=== PATIENT | female | born 1955 | race Caucasian/White ===

== ENCOUNTER 2016-12-17 11:45 | Inpatient (IN) | payer MEDICAID ==
--- NOTE | 2016-12-17 13:35 | EDM.PDOC ---
ED HISTORY OF PRESENT ILLNESS - General Chief Complaint: Respiratory Problem Stated Complaint: LUNG CANCER SURGERY FEELS LIKE FLUID ON LUNG Time Seen by Provider: 12/17/16 13:15 Source: Reports: Patient, Family History Limitations: Reports: No limitations - History of Present Illness INITIAL COMMENTS - FREE TEXT/NARRATIVE: 61-year-old female who had a right thoracotomy just under one month ago had a pleural effusion drained by thoracentesis within the last 2 weeks and is now feeling like the fluid is building back up again. She feels pressure in the right side of her chest and some shortness of breath especially with activity. No fevers or chills, no significant cough. Severity: mild Location, General: Reports: chest Worsens with: Reports: Other (Activity brings about some dyspnea) - Related Data Allergies/ADRs: Allergies Allergy/AdvReac Type Severity Reaction Status Date / Time gluten Allergy GI Verified 05/20/16 23:52 intolerance latex Allergy Cannot Verified 05/20/16 23:52 Remember docusate calcium AdvReac constipatio Verified 05/20/16 23:52 [From Surfak] n Home Meds: Home Meds ALPRAZolam [Xanax] 0.5 mg PO BID 08/04/14 [History] ARIPiprazole [Abilify] 2.5 mg PO DAILY 08/04/14 [History] Fluticasone Propionate [Flonase] 1 spray ROSSI DAILY 08/04/14 [History] Topiramate [Topamax] 200 mg PO TID 08/04/14 [History] Levothyroxine Sodium 100 mcg PO DAILY 02/24/15 [History] Polyethylene Glycol 3350 [MiraLAX] 17 gram PO BID 02/24/15 [History] Sennosides/Docusate Sodium [Sennalax-S] 3 tab PO DAILY 04/05/16 [History] Famotidine 20 mg PO DAILY 12/17/16 [History] Hydrocodone/Acetaminophen [Hydrocodon-Acetaminophn 10-325] 1 - 2 tab PO Q4H PRN 12/17/16 [History] Linaclotide [Linzess] 145 mcg PO DAILY 12/17/16 [History] Loratadine [Claritin] 10 mg PO DAILY 12/17/16 [History] Magnesium 200 mg PO DAILY 12/17/16 [History] Past Medical History HEENT History: Reports: Hard of hearing, Impaired vision, Other (see below) Other HEENT History: Bilateral hearing aids Gastrointestinal History: Reports: Hiatal hernia 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: Musculoskeletal History: Reports: Other (see below) Other Musculoskeletal History: fx arm and wrist on the right side Neurological History: Reports: None Psychiatric History: Reports: Anxiety, Depression, PTSD Endocrine/Metabolic History: Reports: Hypoparathyroidism Oncologic (Cancer) History: Reports: Lung, Lymphoma - Infectious Disease History Infectious Disease History: Reports: Chicken pox, Measles, Mumps, Rubella - Past Surgical History HEENT Surgical History: Reports: None Respiratory Surgical History: Reports: Lung Resection, Thoracotomy, Other (see below) Other Respiratory Surgeries/Procedures: right side GI Surgical History: Reports: Cholecystectomy Endocrine Surgical History: Reports: None Neurological Surgical History: Reports: Laminectomy, Spinal fusion Social & Family History - Tobacco Use Smoking Status *Q: Former Smoker Years of Tobacco use: 50 Packs/Tins Daily: 0.5 Used Tobacco, but Quit: Yes Month Tobacco Last Used: unknown Second Hand Smoke Exposure: No - Caffeine Use Caffeine Use: Reports: Coffee - Alcohol Use Days Per Week of Alcohol Use: 0 - Recreational Drug Use Recreational Drug Use: No ED ROS GENERAL - Review of Systems Review Of Systems: See Below Constitutional: Denies: fever, chills Respiratory: Reports: shortness of breath, pleuritic chest pain Cardiovascular: Reports: Chest pain (Pressure on the right side) GI/Abdominal: Denies: Nausea, Vomiting Skin: Reports: no symptoms Neurological: Denies: headache Psychiatric: Reports: No symptoms ED EXAM, GENERAL - Physical Exam Exam: See Below Exam Limited By: No limitations General Appearance: alert, no apparent distress Respiratory/Chest: no respiratory distress, decreased breath sounds (She has slight decreased breath sounds in the right base, otherwise normal lung sounds) Cardiovascular: regular rate, rhythm. No: tachycardia GI/Abdominal: non tender Extremities: No: pedal edema Neurological: alert, oriented Psychiatric: normal affect, normal mood Skin Exam: Warm, Dry Course - Vital Signs Last Recorded V/S: Last Vital Signs Temp 99.6 F 12/17/16 15:18 Pulse 74 12/17/16 15:18 Resp 16 12/17/16 15:18 BP 126/71 12/17/16 15:18 Pulse Ox 98 12/17/16 15:18 - Orders/Labs/Meds Orders: Active Orders 24 hr Category Date Time Status Chest 2V [CR] Routine Exams 12/17/16 13:26 Taken Sodium Chloride 0.9% [Normal Saline] 1,000 ml Med 12/17/16 14:00 Active IV ASDIRECTED Medication Orders Acetaminophen/Hydrocodone Bitart ([place] 325-10 Mg) 1 - 2 tab PO Q4H PRN PRN Reason: Pain Last Admin: 12/17/16 15:22 Dose: 2 tab Alprazolam (Xanax) 0.5 mg PO BID [facility] Aripiprazole (Abilify) 2.5 mg PO DAILY [facility] Famotidine (Pepcid) 20 mg PO DAILY [facility] Fluticasone Propionate (Flonase) 0 gm NASBOTH DAILY [facility] Sodium Chloride (Normal Saline) 1,000 mls @ 75 mls/hr IV ASDIRECTED [facility] Levothyroxine Sodium (Synthroid) 100 mcg PO DAILY@0730 [facility] Loratadine (Claritin) 10 mg PO DAILY [facility] Magnesium Oxide (Magnesium Oxide) 200 mg PO DAILY [facility] Non-Formulary Medication (Linaclotide [Linzess]) 145 mcg PO DAILY [facility] Ondansetron HCl (Zofran Odt) 4 mg PO Q6H PRN PRN Reason: Nausea able to take PO Polyethylene Glycol (Miralax) 17 gm PO BID [facility] Senna/Docusate Sodium (Senna Plus) 1 tab PO DAILY [facility] Sodium Chloride (Saline Flush) 10 ml FLUSH ASDIRECTED PRN PRN Reason: Keep Vein Open Topiramate (Topamax) 200 mg PO TID [facility] Labs: Laboratory Tests 12/17/16 12/17/16 Range/Units 14:10 14:10 WBC 8.1 (4.5-11.0) K/uL RBC 3.87 (3.30-5.50) M/uL Hgb 11.3 L (12.0-15.0) g/dL Hct 35.2 L (36.0-48.0) % MCV 91 (80-98) fL MCH 29 (27-31) pg MCHC 32 (32-36) % Plt Count 371 (150-400) K/uL Neut % (Auto) 53 (36-66) % Lymph % (Auto) 27 (24-44) % Osborne % (Auto) 10 H (2-6) % Eos % (Auto) 10 H (2-4) % Baso % (Auto) 1 (0-1) % Sodium 141 (140-148) mmol/L Potassium 4.1 (3.6-5.2) mmol/L Chloride 105 (100-108) mmol/L Carbon Dioxide 25 (21-32) mmol/L Anion Gap 11.4 (5.0-14.0) mmol/L BUN 11 (7-18) mg/dL Creatinine 0.9 (0.6-1.0) mg/dL Est Cr Clr Drug Dosing 55.25 mL/min Estimated GFR (MDRD) > 60 (>60) Glucose 100 (74-106) mg/dL Calcium 9.0 (8.5-10.1) mg/dL Meds: Medications Generic Name Dose Route Start Last Admin Trade Name Freq PRN Reason Stop Dose Admin Acetaminophen/Hydrocodone Bitart 1 - 2 tab 12/17/16 14:16 12/17/16 15:22 [place] 325-10 Mg PO 2 tab Q4H PRN Administration Pain Alprazolam 0.5 mg 12/17/16 21:00 Xanax PO BID [facility] Aripiprazole 2.5 mg 12/18/16 09:00 Abilify PO DAILY [facility] Famotidine 20 mg 12/18/16 09:00 Pepcid PO DAILY [facility] Fluticasone Propionate 0 gm 12/18/16 09:00 Flonase NASBOTH DAILY [facility] Sodium Chloride 1,000 mls @ 75 mls/hr 12/17/16 14:00 Normal Saline IV ASDIRECTED [facility] Levothyroxine Sodium 100 mcg 12/18/16 07:30 Synthroid PO DAILY@0730 [facility] Loratadine 10 mg 12/18/16 09:00 Claritin PO DAILY [facility] Magnesium Oxide 200 mg 12/18/16 09:00 Magnesium Oxide PO DAILY [facility] Non-Formulary Medication 145 mcg 12/18/16 09:00 Linaclotide [Linzess] PO DAILY [facility] Ondansetron HCl 4 mg 12/17/16 14:13 Zofran Odt PO Q6H PRN Nausea able to take PO Polyethylene Glycol 17 gm 12/17/16 21:00 Miralax PO BID [facility] Senna/Docusate Sodium 1 tab 12/18/16 09:00 Senna Plus PO DAILY [facility] Sodium Chloride 10 ml 12/17/16 14:13 Saline Flush FLUSH ASDIRECTED PRN Keep Vein Open Topiramate 200 mg 12/17/16 21:00 Topamax PO TID [facility] - Re-Assessments/Exams Free Text/Narrative Re-Assessment/Exam: 12/17/16 13:35 A two-view chest x-ray was obtained. 12/17/16 13:58 X-ray showed not only a pleural effusion but also pneumothorax of roughly 40%. CBC and BMP were then ordered, an IV was established and Dr. Mueller was called to admit the patient who will likely need a chest tube on the right side. Departure - Departure Time of Disposition: 15:03 Disposition: Admitted As Inpatient 64 Condition: fair Clinical Impression: Pneumothorax, postoperative, Pleural effusion on right - My Orders Last 24 Hours: My Active Orders 12/17/16 13:26 Chest 2V [CR] Routine 12/17/16 14:00 Sodium Chloride 0.9% [Normal Saline] 1,000 ml IV ASDIRECTED - Assessment/Plan Last 24 Hours: My Active Orders 12/17/16 13:26 Chest 2V [CR] Routine 12/17/16 14:00 Sodium Chloride 0.9% [Normal Saline] 1,000 ml IV ASDIRECTED
[2016-12-17] MEDS ORDERED: Ondansetron 4 MG Tab.DIS PO PRN (14:13)
[2016-12-17] MEDS ORDERED: Sodium Chloride 0.9% 10 ML Syringe FLUSH PRN (14:13)
[2016-12-17] MEDS: Acetaminophen/HYDROcodone 325-10 MG Tab PO PRN ×2 (15:22→19:53)
[2016-12-17] MEDS: Polyethylene Glycol 3350 Powder 17 GM Packet PO SCH (21:04)
[2016-12-17] MEDS: Topiramate 100 MG Tab PO SCH (21:05)
[2016-12-17] MEDS: ALPRAZolam 0.5 MG Tab PO SCH (21:11)
--- NOTE | 2016-12-17 21:18 | PCM.HP ---
H&P History of Present Illness - General Date of Service: 12/17/16 Admit Problem/Dx: Admission Diagnosis/Problem Admission Diagnosis/Problem Pneumothorax Source of Information: Patient, Family, Old records History Limitations: Reports: No limitations - History of Present Illness Initial Comments - Free Text/Narative: Iwona comes in because of sudden on him unset of shortness of breath. She had been sleeping and when she woke up she was short of breath. She does have a tendency to anxiety and rightfully so she recently was found to have a carcinoma of the lung. She had a lung resection and this week had a pleural effusion and had a thoracentesis. She feels stable at the present time. She came into the emergency room and was found to have a pneumothorax. She does feel pressure type feeling on the right chest. Onset of Symptoms: Reports: sudden Duration of Symptoms: Reports: Hour(s): Location: Reports: chest Quality: Reports: Dull Improves with: Reports: Immobilization Worsens with: Reports: Breathing Associated Symptoms: Reports: chest pain, shortness of breath Right Thoracic Pain Score (Numeric/FACES): 8 right upper chest and all of right side and back Pain Score (Numeric/FACES): 5 - Related Data Allergies/Adverse Reactions: Allergies Allergy/AdvReac Type Severity Reaction Status Date / Time gluten Allergy GI Verified 05/20/16 23:52 intolerance latex Allergy Cannot Verified 05/20/16 23:52 Remember docusate calcium AdvReac constipatio Verified 05/20/16 23:52 [From Surfak] n Home Medications: Home Meds ALPRAZolam [Xanax] 0.5 mg PO BID 08/04/14 [History] ARIPiprazole [Abilify] 2.5 mg PO DAILY 08/04/14 [History] Fluticasone Propionate [Flonase] 1 spray ROSSI DAILY 08/04/14 [History] Topiramate [Topamax] 200 mg PO TID 08/04/14 [History] Levothyroxine Sodium 100 mcg PO DAILY 02/24/15 [History] Polyethylene Glycol 3350 [MiraLAX] 17 gram PO BID 02/24/15 [History] Sennosides/Docusate Sodium [Sennalax-S] 3 tab PO DAILY 04/05/16 [History] Famotidine 20 mg PO DAILY 12/17/16 [History] Hydrocodone/Acetaminophen [Hydrocodon-Acetaminophn 10-325] 1 - 2 tab PO Q4H PRN 12/17/16 [History] Linaclotide [Linzess] 145 mcg PO DAILY 12/17/16 [History] Loratadine [Claritin] 10 mg PO DAILY 12/17/16 [History] Magnesium 200 mg PO DAILY 12/17/16 [History] Past Medical History HEENT History: Reports: Hard of hearing, Impaired vision, Other (see below) Other HEENT History: Bilateral hearing aids Other Respiratory History: THORACENTESIS OF RIGHT LUNG DONE THIS WEEK AT [facility]. 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: Musculoskeletal History: Reports: Other (see below) Other Musculoskeletal History: fx arm and wrist on the right side Neurological History: Reports: None Psychiatric History: Reports: Anxiety, Depression, PTSD Endocrine/Metabolic History: Reports: Hypoparathyroidism Oncologic (Cancer) History: Reports: Lung, Lymphoma - Infectious Disease History Infectious Disease History: Reports: Chicken pox, Measles, Mumps, Rubella - Past Surgical History HEENT Surgical History: Reports: None Respiratory Surgical History: Reports: Lung Resection, Thoracotomy, Other (see below) Other Respiratory Surgeries/Procedures: right side GI Surgical History: Reports: Cholecystectomy Endocrine Surgical History: Reports: None Neurological Surgical History: Reports: Laminectomy, Spinal fusion Social & Family History - Tobacco Use Smoking Status *Q: Former Smoker Years of Tobacco use: 50 Packs/Tins Daily: 0.5 Used Tobacco, but Quit: Yes Month Tobacco Last Used: unknown Second Hand Smoke Exposure: No - Caffeine Use Caffeine Use: Reports: Coffee - Alcohol Use Days Per Week of Alcohol Use: 0 - Recreational Drug Use Recreational Drug Use: No H&P Review of Systems - Review of Systems: Review Of Systems: See Below General: Reports: weakness, fatigue HEENT: Reports: no symptoms Pulmonary: Reports: shortness of breath Cardiovascular: Reports: dyspnea on exertion Gastrointestinal: Reports: No symptoms Genitourinary: Reports: no symptoms Musculoskeletal: Reports: no symptoms Skin: Reports: no symptoms Psychiatric: Reports: no symptoms Neurological: Reports: no symptoms Exam - Exam Exam: See Below - Vital Signs Vital Signs: Last Vital Signs Temp 99.6 F 12/17/16 15:18 Pulse 74 12/17/16 15:18 Resp 16 12/17/16 15:18 BP 126/71 12/17/16 15:18 Pulse Ox 98 12/17/16 15:18 Weight: 128 lb 11.999 oz - Exam General: alert HEENT: PERRLA, Hearing intact, Mucosa moist & pink, Nares patent, Normal nasal septum, Posterior pharynx clear, Conjunctiva clear, EOMI, EACs clear, TMs clear Neck: supple, trachea midline, 2 Lungs: Clear to auscultation, Normal respiratory effort Cardiovascular: regular rate, regular rhythm Abdomen: normal bowel sounds, soft Extremities: 3, normal inspection, 10 Peripheral Pulses: 2+: radial (L), radial (R) Skin: warm, dry, intact Neurological: cranial nerves intact, reflexes equal bilateral, strength equal bilateral, normal gait Neuro Extensive - Mental Status: alert, oriented x3, normal cognition, memory intact DTR: 1+: bicep (L), bicep (R) Psychiatric: alert, normal affect, normal mood - Patient Data Result Diagrams: 12/17/16 14:10 12/17/16 14:10 *Q Meaningful Use (ADM) - VTE *Q VTE Criteria *Q: - Stroke *Q Stroke Criteria *Q: - AMI *Q AMI Criteria *Q: Problem List Initiated/Reviewed/Updated: Yes Orders Last 24hrs: Active Orders 24 hr Category Date Time Status Regular Diet [DIET] Diet 12/17/16 Dinner Active Chest 2V [CR] Routine Exams 12/18/16 05:00 Ordered ALPRAZolam [Xanax] Med 12/17/16 21:00 Active 0.5 mg PO BID ARIPiprazole [Abilify] Med 12/18/16 09:00 Active 2.5 mg PO DAILY Acetaminophen/HYDROcodone [[place] 325-10 MG] Med 12/17/16 14:16 Active 1 - 2 tab PO Q4H PRN Docusate Sodium/Sennosides [Senna Plus] Med 12/18/16 09:00 Active 1 tab PO DAILY Famotidine [Pepcid] Med 12/18/16 09:00 Active 20 mg PO DAILY Fluticasone Propionate [Flonase] Med 12/18/16 09:00 Active 0 gm NASBOTH DAILY Levothyroxine [Synthroid] Med 12/18/16 07:30 Active 100 mcg PO DAILY@0730 Linaclotide [Linzess] Med 12/18/16 09:00 Pending 145 mcg PO DAILY Loratadine [Claritin] Med 12/18/16 09:00 Active 10 mg PO DAILY Magnesium Oxide Med 12/18/16 09:00 Active 200 mg PO DAILY Polyethylene Glycol 3350 [MiraLAX] Med 12/17/16 21:00 Active 17 gm PO BID Topiramate [Topamax] Med 12/17/16 21:00 Active 200 mg PO TID SCD [Sequential Compression Device] [OM.PC] Routine Oth 12/17/16 16:16 Ordered Medication Orders Acetaminophen/Hydrocodone Bitart ([place] 325-10 Mg) 1 - 2 tab PO Q4H PRN PRN Reason: Pain Last Admin: 12/17/16 19:53 Dose: 2 tab Admin: 12/17/16 15:22 Dose: 2 tab Alprazolam (Xanax) 0.5 mg PO BID [facility] Last Admin: 12/17/16 21:11 Dose: 0.5 mg Aripiprazole (Abilify) 2.5 mg PO DAILY [facility] Famotidine (Pepcid) 20 mg PO DAILY [facility] Fluticasone Propionate (Flonase) 0 gm NASBOTH DAILY [facility] Sodium Chloride (Normal Saline) 1,000 mls @ 75 mls/hr IV ASDIRECTED [facility] Levothyroxine Sodium (Synthroid) 100 mcg PO DAILY@0730 [facility] Loratadine (Claritin) 10 mg PO DAILY [facility] Magnesium Oxide (Magnesium Oxide) 200 mg PO DAILY [facility] Non-Formulary Medication (Linaclotide [Linzess]) 145 mcg PO DAILY [facility] Ondansetron HCl (Zofran Odt) 4 mg PO Q6H PRN PRN Reason: Nausea able to take PO Polyethylene Glycol (Miralax) 17 gm PO BID [facility] Last Admin: 12/17/16 21:04 Dose: 17 gm Senna/Docusate Sodium (Senna Plus) 1 tab PO DAILY [facility] Sodium Chloride (Saline Flush) 10 ml FLUSH ASDIRECTED PRN PRN Reason: Keep Vein Open Topiramate (Topamax) 200 mg PO TID [facility] Last Admin: 12/17/16 21:05 Dose: 200 mg Assessment/Plan Comment:: Assessment/Plan: #1. Lung cancer with pneumothorax status post pleurocentesis. I will observe her as the pneumothorax may have been caused at the time of the thoracentesis. I will repeat the chest x-ray in the morning. #2. Temporomandibular joint disorder. Condition stable. #3. Dupuytren's disease of palm. Condition stable. #4. Senile cataract of both eyes. #5. Diaphragmatic hernia. Condition stable.
[2016-12-17] MEDS: Sodium Chloride 0.9% 1,000 ML IV SCH (22:04)
[2016-12-18] MEDS: Acetaminophen/HYDROcodone 325-10 MG Tab PO PRN ×3 (01:55→12:11)
[2016-12-18] MEDS: Levothyroxine 100 MCG Tab PO SCH (07:27)
[2016-12-18] MEDS: Fluticasone Propionate Nasal Spray 16 GM Bottle NASBOTH SCH (08:39)
[2016-12-18] MEDS: ARIPiprazole 10 MG Tab PO SCH (08:40)
[2016-12-18] MEDS: Magnesium Oxide 400 MG Tab PO SCH (08:40)
[2016-12-18] MEDS: Loratadine 10 MG Tab PO SCH (08:40)
[2016-12-18] MEDS: Famotidine 20 MG Tab PO SCH (08:41)
[2016-12-18] MEDS: Polyethylene Glycol 3350 Powder 17 GM Packet PO SCH ×2 (08:41→23:03)
[2016-12-18] MEDS: Topiramate 100 MG Tab PO SCH ×3 (08:41→23:05)
[2016-12-18] MEDS ORDERED: Non-Formulary Medication 1 Each (Linaclotide [Linzess] 145 MCG) PO SCH (09:00)
[2016-12-18] MEDS: ALPRAZolam 0.5 MG Tab PO SCH ×2 (10:12→23:08)
[2016-12-18] MEDS: Sodium Chloride 0.9% 1,000 ML IV SCH ×2 (11:16→16:48)
[2016-12-18] MEDS ORDERED: Bupivacaine 0.5%/EPINEPHrine 1:200,000 50 ML MDV ONE (15:08)
[2016-12-18] MEDS ORDERED: fentaNYL 100 MCG/2 ML SDV ONE (15:15)
[2016-12-18] MEDS ORDERED: Propofol 200 MG/20 ML SDV ONE (15:15)
[2016-12-18] MEDS ORDERED: Midazolam 1 MG/ML 2 ML SDV ONE (15:15)
[2016-12-18] MEDS ORDERED: Naloxone 0.4 MG/ML SDV IV PRN (15:20)
[2016-12-18] MEDS ORDERED: HYDROmorphone/Normal Saline 15 MG/30 ML PCA IV PRN (15:20)
[2016-12-18] MEDS ORDERED: ceFAZolin 2 GM in Sodium Chloride 0.9% 50 ML IV ONE (16:00)
[2016-12-18] MEDS ORDERED: Meperidine PF 25 MG/ML Syringe IVPUSH ONE (16:30)
[2016-12-18] MEDS ORDERED: hydrOXYzine HCl 50 MG/ML SDV IM PRN (16:57)
--- NOTE | 2016-12-18 20:10 | PCM.PN ---
- General Info Date of Service: 12/18/16 Functional Status: Reports: pain controlled - Review of Systems General: Reports: weakness HEENT: Reports: no symptoms Pulmonary: Reports: shortness of breath, pleuritic chest pain Cardiovascular: Reports: no symptoms Gastrointestinal: Reports: No symptoms Genitourinary: Reports: no symptoms Musculoskeletal: Reports: no symptoms Skin: Reports: no symptoms Neurological: Reports: no symptoms Psychiatric: Reports: no symptoms - Patient Data Vitals - most recent: Last Vital Signs Temp 98.1 F 12/18/16 18:00 Pulse 88 12/18/16 19:15 Resp 16 12/18/16 19:15 BP 136/75 12/18/16 19:15 Pulse Ox 96 12/18/16 19:17 Weight - most recent: 130 lb 11.2 oz I&O - last 24 hours: Intake & Output 12/18/16 12/18/16 12/18/16 06:59 14:59 22:59 Intake Total 1964 480 884 Output Total 750 850 Balance 1214 -370 884 Eamon Results last 24 hrs: Microbiology 12/18/16 17:05 Gram Stain - Final Pleural Fluid - Pleural Cavity, Right Med Orders - Current: Current Medications Acetaminophen/Hydrocodone Bitart ([place] 325-10 Mg) 1 - 2 tab PO Q4H PRN PRN Reason: Pain Last Admin: 12/18/16 12:11 Dose: 2 tab Alprazolam (Xanax) 0.5 mg PO BID [facility] Last Admin: 12/18/16 10:12 Dose: 0.5 mg Aripiprazole (Abilify) 2.5 mg PO DAILY [facility] Last Admin: 12/18/16 08:40 Dose: 2.5 mg Famotidine (Pepcid) 20 mg PO DAILY [facility] Last Admin: 12/18/16 08:41 Dose: 20 mg Fluticasone Propionate (Flonase) 0 gm NASBOTH DAILY [facility] Last Admin: 12/18/16 08:39 Dose: Not Given Hydromorphone HCl (Dilaudid [employer]ingo [employer]ier 15 Mg In Ns 30 Ml) 0 mg IV ASDIRECTED PRN; Protocol PRN Reason: RECREATION AIDE PAIN CONTROL Last Admin: 12/18/16 15:29 Dose: 15 mg Hydroxyzine HCl (Vistaril) 100 mg IM Q4H PRN PRN Reason: Pain Last Admin: 12/18/16 18:10 Dose: 100 mg Hydroxyzine HCl (Atarax) 100 mg PO Q4H PRN PRN Reason: Pain Sodium Chloride (Normal Saline) 1,000 mls @ 75 mls/hr IV ASDIRECTED [facility] Last Admin: 12/18/16 16:48 Dose: 75 mls/hr Levothyroxine Sodium (Synthroid) 100 mcg PO DAILY@0730 [facility] Last Admin: 12/18/16 07:27 Dose: 100 mcg Loratadine (Claritin) 10 mg PO DAILY [facility] Last Admin: 12/18/16 08:40 Dose: 10 mg Magnesium Oxide (Magnesium Oxide) 200 mg PO DAILY [facility] Last Admin: 12/18/16 08:40 Dose: 200 mg Naloxone HCl (Narcan) 0.1 mg IV ASDIRECTED PRN PRN Reason: decreased respiratory rate Ondansetron HCl (Zofran Odt) 4 mg PO Q6H PRN PRN Reason: Nausea able to take PO Polyethylene Glycol (Miralax) 17 gm PO BID [facility] Last Admin: 12/18/16 08:41 Dose: 17 gm Senna/Docusate Sodium (Senna Plus) 1 tab PO DAILY [facility] Last Admin: 12/18/16 08:41 Dose: 1 tab Sodium Chloride (Saline Flush) 10 ml FLUSH ASDIRECTED PRN PRN Reason: Keep Vein Open Topiramate (Topamax) 200 mg PO TID [facility] Last Admin: 12/18/16 18:10 Dose: Not Given Discontinued Medications Bupivacaine HCl/Epinephrine Bitart (Marc[place] 0.5%/Epinephrine 1:200,000) Confirm Administered Dose 50 ml .ROUTE .STK-MED ONE Stop: 12/18/16 15:09 Last Admin: 12/18/16 17:09 Dose: 5 ml Fentanyl (Sublimaze) Confirm Administered Dose 100 mcg .ROUTE .STK-MED ONE Stop: 12/18/16 15:16 Cefazolin Sodium 2 gm/ Sodium (Chloride) 50 mls @ 100 mls/hr IV ONCALL ONE Stop: 12/18/16 16:29 Last Admin: 12/18/16 15:28 Dose: 100 mls/hr Meperidine HCl (Demerol) 25 mg IVPUSH ONETIME ONE Stop: 12/18/16 16:31 Last Admin: 12/18/16 16:35 Dose: 25 mg Midazolam HCl (Versed 1 Mg/Ml) Confirm Administered Dose 2 mg .ROUTE .STK-MED ONE Stop: 12/18/16 15:16 Propofol (Diprivan 20 Ml) Confirm Administered Dose 200 mg .ROUTE .STK-MED ONE Stop: 12/18/16 15:16 - Exam General: alert, oriented HEENT: Pupils equal, Pupils reactive, EOMI, Mucous membr. moist/pink Neck: supple Lungs: Decreased breath sounds Cardiovascular: regular rate, regular rhythm Abdomen: bowel sounds present, soft, no tenderness, no distension Back Exam: normal inspection, full range of motion Extremities: no edema Peripheral Pulses: 2+: radial (L), radial (R) Skin: warm Neurological: no new focal deficit Psy/Mental Status: alert - Problem List Review Problem List Initiated/Reviewed/Updated: Yes - My Orders Last 24 Hours: My Active Orders 12/17/16 21:00 ALPRAZolam [Xanax] 0.5 mg PO BID Polyethylene Glycol 3350 [MiraLAX] 17 gm PO BID Topiramate [Topamax] 200 mg PO TID 12/18/16 05:00 Chest 2V [CR] Routine 12/18/16 07:30 Levothyroxine [Synthroid] 100 mcg PO DAILY@0730 12/18/16 09:00 ARIPiprazole [Abilify] 2.5 mg PO DAILY Docusate Sodium/Sennosides [Senna Plus] 1 tab PO DAILY Famotidine [Pepcid] 20 mg PO DAILY Fluticasone Propionate [Flonase] 0 gm NASBOTH DAILY Loratadine [Claritin] 10 mg PO DAILY Magnesium Oxide 200 mg PO DAILY 12/18/16 Lunch NPO Now [Nothing per Oral Now Diet] [DIET] - Plan Plan:: Assessment/Plan: #1. Lung cancer with pneumothorax status post pleurocentesis. The chest x-ray done this morning showed increased pneumothorax of significance. I have called Dr. Shepherd and talked with him and he will put in a chest tube today. #2. Temporomandibular joint disorder. Condition stable. #3. Dupuytren's disease of palm. Condition stable. #4. Senile cataract of both eyes. #5. Diaphragmatic hernia. Condition stable. Her blood pressure is good control 136 systolic.
[2016-12-19] MEDS: Sodium Chloride 0.9% 1,000 ML IV SCH ×2 (02:16→15:40)
[2016-12-19] MEDS: hydrOXYzine HCl 25 MG Tab PO PRN ×2 (07:29→20:24)
[2016-12-19] MEDS: Levothyroxine 100 MCG Tab PO SCH (07:29)
[2016-12-19] MEDS: ARIPiprazole 10 MG Tab PO SCH (08:27)
[2016-12-19] MEDS: Polyethylene Glycol 3350 Powder 17 GM Packet PO SCH ×2 (08:28→20:25)
[2016-12-19] MEDS: Loratadine 10 MG Tab PO SCH (08:28)
[2016-12-19] MEDS: Famotidine 20 MG Tab PO SCH (08:28)
[2016-12-19] MEDS: Magnesium Oxide 400 MG Tab PO SCH (08:28)
[2016-12-19] MEDS: Topiramate 100 MG Tab PO SCH ×3 (08:29→20:24)
[2016-12-19] MEDS: Acetaminophen/HYDROcodone 325-10 MG Tab PO PRN ×4 (08:39→21:08)
[2016-12-19] MEDS: ALPRAZolam 0.5 MG Tab PO SCH ×2 (08:39→20:24)
[2016-12-19] MEDS: Fluticasone Propionate Nasal Spray 16 GM Bottle NASBOTH SCH (08:41)
--- NOTE | 2016-12-19 09:26 | CR ---
Chest 2V HISTORY: Follow-up chest tube placement. COMPARISON: 12/18/2016 at 1558 hours. FINDINGS: Right-sided chest tube unchanged in position. Very tiny apical pneumothorax. No dense acut e infiltrates.
--- NOTE | 2016-12-19 09:28 | CR ---
Chest 1V Frontal HISTORY: Chest tube placement. COMPARISON: 12/18/2016 at 0441 hours FINDINGS: Interval placement of right-sided chest tube. Tiny right apical pneumothorax. No acute inf iltrates.
--- NOTE | 2016-12-19 09:29 | CR ---
Chest 2V HISTORY: Follow-up pneumothorax. COMPARISON: 12/17/2016. FINDINGS: The right-sided hydropneumothorax has slightly increased in size. No obvious tension pneum othorax. Left lung is clear. Pneumothorax is estimated to be approximately 50%.
--- NOTE | 2016-12-19 09:30 | CR ---
Chest 2V HISTORY: Dyspnea COMPARISON: CT scan of the chest 09/14/2016. FINDINGS: Moderate right-sided hydropneumothorax new from prior CT scan. No tension pneumothorax. Le ft lung is clear.
--- NOTE | 2016-12-19 11:50 | OR ---
DATE OF PROCEDURE: 12/18/2016 PREOPERATIVE DIAGNOSES: Combined large right pleural effusion and pneumothorax. POSTOPERATIVE DIAGNOSES: Combined large right pleural effusion and pneumothorax. OPERATIVE PROCEDURE: Right tube thoracostomy ([id number]). ANESTHESIA: Local plus IV sedation. 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 The patient had presented earlier this week with pleural effusion and underwent a thoracentesis. She presented then last evening to the emergency room with a sense of increasing shortness of breath and chest x-ray confirms a large right pleural effusion along with a fairly large pneumothorax. The patient is not clinically dyspneic. The plan is to proceed with a right tube thoracostomy. Potential risks including bleeding, infection, injury to underlying lung or chest wall were reviewed, and the patient wishes to proceed. DETAILS OF PROCEDURE: The patient and taken to the operating room and placed in a supine position with the right arm raised and the patient tilted somewhat toward the left. The right lateral chest wall was then prepped and draped and adjacent to the previous chest tube site, the skin and underlying soft tissues were anesthetized with 1% lidocaine mixed with Marcaine. Transverse incision was made and a blunt dissection then was undertaken into the pleural space. A 20-Scottish chest tube was then placed and directed posteriorly. The #2 Ethibond stitch. Chest x-ray showed a good chest tube placement and a good evacuation of the pleural fluid as well as pneumothorax, roughly 1200 mL of serous pleural fluid was obtained. The cultures were sent, although this does not appear to be grossly infected. The patient was noted to have a small air leak when coughing, but no ongoing significant air leak per se was noted. The dressing was applied. The patient was taken to the recovery room in a satisfactory condition. Liam Shepherd MD /[id number]
[2016-12-19] MEDS: Cyclobenzaprine 10 MG Tab PO PRN ×2 (16:23→22:31)
--- NOTE | 2016-12-19 21:54 | PCM.PN ---
- General Info Date of Service: 12/19/16 Functional Status: Reports: pain controlled - Review of Systems General: Reports: weakness HEENT: Reports: no symptoms Pulmonary: Reports: shortness of breath, pleuritic chest pain Cardiovascular: Reports: no symptoms Gastrointestinal: Reports: No symptoms Genitourinary: Reports: no symptoms Musculoskeletal: Reports: no symptoms Skin: Reports: no symptoms Neurological: Reports: no symptoms Psychiatric: Reports: no symptoms - Patient Data Vitals - most recent: Last Vital Signs Temp 100.6 F 12/19/16 18:45 Pulse 84 12/19/16 18:45 Resp 17 12/19/16 18:45 BP 119/67 12/19/16 18:45 Pulse Ox 97 12/19/16 18:45 Weight - most recent: 133 lb 3.2 oz I&O - last 24 hours: Intake & Output 12/19/16 12/19/16 12/19/16 06:59 14:59 22:59 Intake Total 1163 Output Total 394 909 8250 Balance 323 -350 -1550 Eamon Results last 24 hrs: Microbiology 12/18/16 17:05 Gram Stain - Final Pleural Fluid - Pleural Cavity, Right Med Orders - Current: Current Medications Acetaminophen/Hydrocodone Bitart ([place] 325-10 Mg) 1 - 2 tab PO Q4H PRN PRN Reason: Pain Last Admin: 12/19/16 21:08 Dose: 2 tab Alprazolam (Xanax) 0.5 mg PO BID [facility] Last Admin: 12/19/16 20:24 Dose: 0.5 mg Aripiprazole (Abilify) 2.5 mg PO DAILY [facility] Last Admin: 12/19/16 08:27 Dose: 2.5 mg Cyclobenzaprine HCl (Flexeril) 10 mg PO Q6H PRN PRN Reason: Pain Last Admin: 12/19/16 16:23 Dose: 10 mg Famotidine (Pepcid) 20 mg PO DAILY [facility] Last Admin: 12/19/16 08:28 Dose: 20 mg Fluticasone Propionate (Flonase) 0 gm NASBOTH DAILY [facility] Last Admin: 12/19/16 08:41 Dose: Not Given Hydroxyzine HCl (Vistaril) 100 mg IM Q4H PRN PRN Reason: Pain Last Admin: 12/18/16 18:10 Dose: 100 mg Hydroxyzine HCl (Atarax) 100 mg PO Q4H PRN PRN Reason: Pain Last Admin: 12/19/16 20:24 Dose: 100 mg Sodium Chloride (Normal Saline) 1,000 mls @ 75 mls/hr IV ASDIRECTED [facility] Last Admin: 12/19/16 15:40 Dose: 75 mls/hr Levothyroxine Sodium (Synthroid) 100 mcg PO DAILY@0730 [facility] Last Admin: 12/19/16 07:29 Dose: 100 mcg Loratadine (Claritin) 10 mg PO DAILY [facility] Last Admin: 12/19/16 08:28 Dose: 10 mg Magnesium Oxide (Magnesium Oxide) 200 mg PO DAILY [facility] Last Admin: 12/19/16 08:28 Dose: 200 mg Ondansetron HCl (Zofran Odt) 4 mg PO Q6H PRN PRN Reason: Nausea able to take PO Last Admin: 12/18/16 22:23 Dose: 4 mg Polyethylene Glycol (Miralax) 17 gm PO BID [facility] Last Admin: 12/19/16 20:25 Dose: 17 gm Senna/Docusate Sodium (Senna Plus) 1 tab PO DAILY [facility] Last Admin: 12/19/16 08:28 Dose: 1 tab Sodium Chloride (Saline Flush) 10 ml FLUSH ASDIRECTED PRN PRN Reason: Keep Vein Open Topiramate (Topamax) 200 mg PO TID [facility] Last Admin: 12/19/16 20:24 Dose: 200 mg Discontinued Medications Bupivacaine HCl/Epinephrine Bitart (Marcaine 0.5%/Epinephrine 1:200,000) Confirm Administered Dose 50 ml .ROUTE .STK-MED ONE Stop: 12/18/16 15:09 Last Admin: 12/18/16 17:09 Dose: 5 ml Fentanyl (Sublimaze) Confirm Administered Dose 100 mcg .ROUTE .STK-MED ONE Stop: 12/18/16 15:16 Hydromorphone HCl (Dilaudid Ch[place] 15 Mg In Ns 30 Ml) 0 mg IV ASDIRECTED PRN; Protocol PRN Reason: HYPERION DEVELOPER PAIN CONTROL Last Admin: 12/18/16 15:29 Dose: 15 mg Cefazolin Sodium 2 gm/ Sodium (Chloride) 50 mls @ 100 mls/hr IV ONCALL ONE Stop: 12/18/16 16:29 Last Admin: 12/18/16 15:28 Dose: 100 mls/hr Meperidine HCl (Demerol) 25 mg IVPUSH ONETIME ONE Stop: 12/18/16 16:31 Last Admin: 12/18/16 16:35 Dose: 25 mg Midazolam HCl (Versed 1 Mg/Ml) Confirm Administered Dose 2 mg .ROUTE .STK-MED ONE Stop: 12/18/16 15:16 Naloxone HCl (Narcan) 0.1 mg IV ASDIRECTED PRN PRN Reason: decreased respiratory rate Propofol (Diprivan 20 Ml) Confirm Administered Dose 200 mg .ROUTE .STK-MED ONE Stop: 12/18/16 15:16 - Exam General: alert, oriented HEENT: Pupils equal, Pupils reactive, EOMI, Mucous membr. moist/pink Neck: supple Lungs: Decreased breath sounds Cardiovascular: regular rate, regular rhythm Abdomen: bowel sounds present, soft, no tenderness, no distension Extremities: no edema Peripheral Pulses: 2+: radial (L), radial (R) Skin: warm, dry Wound/Incisions: no drainage Neurological: no new focal deficit Psy/Mental Status: alert, anxious - Problem List Review Problem List Initiated/Reviewed/Updated: Yes - Plan Plan:: Assessment/Plan: #1. Lung cancer with pneumothorax status post pleurocentesis. A chest tube was placed yesterday by Dr. Shepherd and considerable amount of fluid was removed. She had significant pain this morning and I increased her oral medication that she didn't like the HYPERION DEVELOPER. This afternoon she said her pain was not good control but getting better with increased medication. #2. Temporomandibular joint disorder. Condition stable. #3. Dupuytren's disease of palm. Condition stable. #4. Senile cataract of both eyes. #5. Diaphragmatic hernia. Condition stable. Her blood pressure is good control 130/68.
[2016-12-20] MEDS: Acetaminophen/HYDROcodone 325-10 MG Tab PO PRN ×4 (01:15→13:48)
[2016-12-20] MEDS: hydrOXYzine HCl 25 MG Tab PO PRN ×4 (02:34→17:15)
[2016-12-20] MEDS: Cyclobenzaprine 10 MG Tab PO PRN ×4 (04:23→23:08)
[2016-12-20] MEDS: Sodium Chloride 0.9% 1,000 ML IV SCH (04:24)
--- NOTE | 2016-12-20 07:56 | PN ---
DATE OF SERVICE: 12/19/2016 The patient has been afebrile with stable vital signs. She has been down in terms of urine output yesterday, but it did picking crew supervisor during the night. Chest tube output was 340 mL. I am not seeing an air leak, and there is a very minimal sliver of pneumothorax apically. There is much less fluctuation than when she left the operating room, so I think things are probably healing up. We will need to wait until the output is down at around 100 mL to 150 mL a day before pulling the tube, confirming that there is no air leak. We will continue to work on pulmonary toilet. We will leave the HOME HOUSEKEEPER going for today. Liam Shepherd MD /[id number]
[2016-12-20] MEDS: Levothyroxine 100 MCG Tab PO SCH (08:43)
[2016-12-20] MEDS: Loratadine 10 MG Tab PO SCH (08:44)
[2016-12-20] MEDS: ARIPiprazole 10 MG Tab PO SCH (08:44)
[2016-12-20] MEDS: Magnesium Oxide 400 MG Tab PO SCH (08:45)
[2016-12-20] MEDS: Fluticasone Propionate Nasal Spray 16 GM Bottle NASBOTH SCH (08:45)
[2016-12-20] MEDS: Polyethylene Glycol 3350 Powder 17 GM Packet PO SCH ×2 (08:46→20:39)
[2016-12-20] MEDS: Topiramate 100 MG Tab PO SCH ×4 (08:46→20:43)
[2016-12-20] MEDS: Famotidine 20 MG Tab PO SCH (08:46)
[2016-12-20] MEDS: ALPRAZolam 0.5 MG Tab PO SCH ×2 (08:56→20:34)
--- NOTE | 2016-12-20 10:24 | CR ---
Chest 1V Frontal HISTORY: Chest tube COMPARISON: 12/19/2016. FINDINGS: Tiny right apical pneumothorax. Right chest chest tube in good position. Small right-sided effusion. Left lung is clear.
--- NOTE | 2016-12-20 13:33 | PN ---
DATE OF SERVICE: 12/20/2016 The patient has been afebrile with stable vital signs. The patient appeared to have an air leak yesterday for a period of time. This now has stopped. Once again, chest tube output was around 350 mL for the 24 hours. There was little bit of fluid in the pleural space, but no significant pneumothorax. At this time, the plan will be to leave the chest tube in place for now, maximize activity, and work with pulmonary toilet. Liam Shepherd MD /[id number]
[2016-12-20] MEDS ORDERED: Naloxone 0.4 MG/ML SDV IV PRN (18:02)
[2016-12-20] MEDS: Acetaminophen/HYDROcodone 325-5 MG Tab PO PRN (18:17)
[2016-12-20] MEDS: HYDROmorphone/Normal Saline 15 MG/30 ML PCA IV PRN (18:28)
--- NOTE | 2016-12-20 21:53 | PCM.PN ---
- General Info Date of Service: 12/20/16 - Review of Systems General: Reports: weakness HEENT: Reports: no symptoms Pulmonary: Reports: shortness of breath, pleuritic chest pain Cardiovascular: Reports: no symptoms Gastrointestinal: Reports: No symptoms Genitourinary: Reports: no symptoms Musculoskeletal: Reports: no symptoms Skin: Reports: no symptoms Neurological: Reports: no symptoms Psychiatric: Reports: anxiety - Patient Data Vitals - most recent: Last Vital Signs Temp 98.8 F 12/20/16 19:26 Pulse 81 12/20/16 20:29 Resp 10 L 12/20/16 20:29 BP 113/57 L 12/20/16 20:29 Pulse Ox 95 12/20/16 20:29 Weight - most recent: 133 lb 3.2 oz I&O - last 24 hours: Intake & Output 12/20/16 12/20/16 12/20/16 06:59 14:59 22:59 Intake Total 1616 1540 720 Output Total 1250 2225 800 Balance 361 -315 -69 Eamon Results last 24 hrs: Microbiology 12/18/16 17:05 Gram Stain - Final Pleural Fluid - Pleural Cavity, Right Wound Culture - Preliminary NO GROWTH AFTER 1 DAY Anaerobic Culture - Preliminary NO GROWTH AFTER 1 DAY Med Orders - Current: Current Medications Acetaminophen/Hydrocodone Bitart ([place] 325-5 Mg) 1 tab PO Q4H PRN PRN Reason: Pain Last Admin: 12/20/16 18:17 Dose: 1 tab Alprazolam (Xanax) 0.5 mg PO BID [facility] Last Admin: 12/20/16 20:34 Dose: Not Given Aripiprazole (Abilify) 2.5 mg PO DAILY [facility] Last Admin: 12/20/16 08:44 Dose: 2.5 mg Cyclobenzaprine HCl (Flexeril) 10 mg PO Q6H PRN PRN Reason: Pain Last Admin: 12/20/16 17:11 Dose: 10 mg Famotidine (Pepcid) 20 mg PO DAILY [facility] Last Admin: 12/20/16 08:46 Dose: 20 mg Fluticasone Propionate (Flonase) 0 gm NASBOTH DAILY [facility] Last Admin: 12/20/16 08:45 Dose: 1 spray Hydromorphone HCl (Dilaudid Vegetable Thinner 15 Mg In Ns 30 Ml) 0 mg IV ASDIRECTED PRN; Protocol PRN Reason: PAIN Last Admin: 12/20/16 18:28 Dose: 15 mg Hydroxyzine HCl (Vistaril) 100 mg IM Q4H PRN PRN Reason: Pain Last Admin: 12/18/16 18:10 Dose: 100 mg Hydroxyzine HCl (Atarax) 100 mg PO Q4H PRN PRN Reason: Pain Last Admin: 12/20/16 17:15 Dose: 100 mg Levothyroxine Sodium (Synthroid) 100 mcg PO DAILY@0730 [facility] Last Admin: 12/20/16 08:43 Dose: 100 mcg Loratadine (Claritin) 10 mg PO DAILY [facility] Last Admin: 12/20/16 08:44 Dose: 10 mg Magnesium Oxide (Magnesium Oxide) 200 mg PO DAILY [facility] Last Admin: 12/20/16 08:45 Dose: 200 mg Naloxone HCl (Narcan) 0.1 mg IV ASDIRECTED PRN PRN Reason: decreased respiratory rate Ondansetron HCl (Zofran Odt) 4 mg PO Q6H PRN PRN Reason: Nausea able to take PO Last Admin: 12/18/16 22:23 Dose: 4 mg Polyethylene Glycol (Miralax) 17 gm PO BID [facility] Last Admin: 12/20/16 20:39 Dose: 17 gm Senna/Docusate Sodium (Senna Plus) 1 tab PO DAILY [facility] Last Admin: 12/20/16 08:46 Dose: 1 tab Senna/Docusate Sodium (Senna Plus) 2 tab PO BID [facility] Last Admin: 12/20/16 20:38 Dose: 2 tab Sodium Chloride (Saline Flush) 10 ml FLUSH ASDIRECTED PRN PRN Reason: Keep Vein Open Topiramate (Topamax) 200 mg PO TID [facility] Last Admin: 12/20/16 20:43 Dose: Not Given Discontinued Medications Acetaminophen/Hydrocodone Bitart ([place] 325-10 Mg) 1 - 2 tab PO Q4H PRN PRN Reason: Pain Last Admin: 12/20/16 13:48 Dose: 2 tab Bupivacaine HCl/Epinephrine Bitart (Marcaine 0.5%/Epinephrine 1:200,000) Confirm Administered Dose 50 ml [facility] Stop: 12/18/16 15:09 Last Admin: 12/18/16 17:09 Dose: 5 ml Fentanyl (Sublimaze) Confirm Administered Dose 100 mcg .ROUTE .STK-MED ONE Stop: 12/18/16 15:16 Hydromorphone HCl (Dilaudid Vegetable Thinner 15 Mg In Ns 30 Ml) 0 mg IV ASDIRECTED PRN; Protocol PRN Reason: MUSEUM ATTENDANT PAIN CONTROL Last Admin: 12/18/16 15:29 Dose: 15 mg Sodium Chloride (Normal Saline) 1,000 mls @ 75 mls/hr IV ASDIRECTED [facility] Last Admin: 12/20/16 04:24 Dose: 75 mls/hr Cefazolin Sodium 2 gm/ Sodium (Chloride) 50 mls @ 100 mls/hr IV ONCALL ONE Stop: 12/18/16 16:29 Last Admin: 12/18/16 15:28 Dose: 100 mls/hr Meperidine HCl (Demerol) 25 mg IVPUSH ONETIME ONE Stop: 12/18/16 16:31 Last Admin: 12/18/16 16:35 Dose: 25 mg Midazolam HCl (Versed 1 Mg/Ml) Confirm Administered Dose 2 mg .ROUTE .STK-MED ONE Stop: 12/18/16 15:16 Naloxone HCl (Narcan) 0.1 mg IV ASDIRECTED PRN PRN Reason: decreased respiratory rate Propofol (Diprivan 20 Ml) Confirm Administered Dose 200 mg .ROUTE .STK-MED ONE Stop: 12/18/16 15:16 - Exam General: alert, oriented HEENT: Pupils equal, Pupils reactive, EOMI, Mucous membr. moist/pink Neck: supple Lungs: Other (There is decreased breath sounds on the right) Cardiovascular: regular rate, regular rhythm Abdomen: bowel sounds present, soft, no tenderness, no distension Back Exam: normal inspection Extremities: no edema Peripheral Pulses: 2+: radial (L), radial (R) Psy/Mental Status: alert, depressed - Problem List Review Problem List Initiated/Reviewed/Updated: Yes - My Orders Last 24 Hours: My Active Orders 12/20/16 08:50 Convert IV to Saline Lock [OM.PC] Routine 12/20/16 18:00 Acetaminophen/HYDROcodone [[place] 325-5 MG] 1 tab PO Q4H PRN HYDROmorphone/Normal Saline [Dilaudid MUSEUM ATTENDANT 15 MG in NS 30 ML] 0 mg IV ASDIRECTED PRN 12/20/16 18:01 Overnight Pulse Oximetry [RC] Click to Edit Pulse Oximetry Continuous Monitoring [OM.PC] Routine 12/20/16 18:02 Naloxone [Narcan] 0.1 mg IV ASDIRECTED PRN - Plan Plan:: Assessment/Plan: #1. Lung cancer with pneumothorax status post pleurocentesis. A chest tube is in place is still draining 350 cc of fluid. This is being handled by Dr. Joao huerta and she was having significant amount of pain this evening so I restarted the MUSEUM ATTENDANT with Dilaudid and then cut her back to 15/325 hydrocodone instead of 2. #2. Temporomandibular joint disorder. Condition stable. #3. Dupuytren's disease of palm. Condition stable. #4. Senile cataract of both eyes. #5. Diaphragmatic hernia. Condition stable. Her blood pressure is good control 130/68.
[2016-12-21] MEDS: Levothyroxine 100 MCG Tab PO SCH (07:22)
[2016-12-21] MEDS: Loratadine 10 MG Tab PO SCH (08:25)
[2016-12-21] MEDS: ARIPiprazole 10 MG Tab PO SCH (08:25)
[2016-12-21] MEDS: Magnesium Oxide 400 MG Tab PO SCH (08:26)
[2016-12-21] MEDS: Topiramate 100 MG Tab PO SCH ×3 (08:26→20:48)
[2016-12-21] MEDS: Polyethylene Glycol 3350 Powder 17 GM Packet PO SCH ×2 (08:26→20:48)
[2016-12-21] MEDS: Famotidine 20 MG Tab PO SCH (08:26)
[2016-12-21] MEDS: Fluticasone Propionate Nasal Spray 16 GM Bottle NASBOTH SCH (08:26)
[2016-12-21] MEDS: ALPRAZolam 0.5 MG Tab PO SCH ×2 (08:26→20:46)
[2016-12-21] MEDS ORDERED: Magnesium Citrate Solution 296 ML Bottle PO ONE (08:52)
--- NOTE | 2016-12-21 09:51 | CR ---
Chest 1V Frontal HISTORY: Chest tube COMPARISON: 12/20/2016 FINDINGS: Right-sided chest tube. Tiny right apical pneumothorax unchanged. No new infiltrates. Righ t lung base effusion is no longer apparent.
[2016-12-21] MEDS: Acetaminophen/HYDROcodone 325-5 MG Tab PO PRN (12:04)
[2016-12-21] MEDS: Acetaminophen/HYDROcodone 325-5 MG Tab PO SCH ×3 (15:48→23:43)
[2016-12-21] MEDS: HYDROmorphone/Normal Saline 15 MG/30 ML PCA IV PRN (20:29)
--- NOTE | 2016-12-21 23:20 | PCM.PN ---
- General Info Date of Service: 12/21/16 Subjective Update: She's feeling much better after the oral medications and the MACHINE QUILT STUFFER Dilaudid is in force. - Review of Systems General: Reports: weakness Pulmonary: Reports: shortness of breath, pleuritic chest pain Cardiovascular: Reports: no symptoms Gastrointestinal: Reports: Constipation Genitourinary: Reports: no symptoms Musculoskeletal: Reports: no symptoms Skin: Reports: no symptoms Neurological: Reports: no symptoms Psychiatric: Reports: no symptoms - Patient Data Vitals - most recent: Last Vital Signs Temp 97.9 F 12/21/16 22:00 Pulse 99 12/21/16 22:00 Resp 14 12/21/16 22:00 BP 114/57 L 12/21/16 22:00 Pulse Ox 96 12/21/16 22:00 Weight - most recent: 135 lb 14.4 oz I&O - last 24 hours: Intake & Output 12/21/16 12/21/16 12/22/16 14:59 22:59 06:59 Intake Total 480 1290 Output Total 600 1100 Balance -120 190 Lab Results last 24 hrs: Laboratory Results - last 24 hr 12/21/16 12/21/16 Range/Units 08:46 08:50 WBC 6.1 (4.5-11.0) K/uL RBC 3.86 (3.30-5.50) M/uL Hgb 11.1 L (12.0-15.0) g/dL Hct 35.2 L (36.0-48.0) % MCV 91 (80-98) fL MCH 29 (27-31) pg MCHC 32 (32-36) % Plt Count 293 (150-400) K/uL Neut % (Auto) 52 (36-66) % Lymph % (Auto) 23 L (24-44) % Bath % (Auto) 11 H (2-6) % Eos % (Auto) 14 H (2-4) % Baso % (Auto) 1 (0-1) % Sodium 139 L (140-148) mmol/L Potassium 4.5 (3.6-5.2) mmol/L Chloride 105 (100-108) mmol/L Carbon Dioxide 26 (21-32) mmol/L Anion Gap 12.5 (5.0-14.0) mmol/L BUN 6 L (7-18) mg/dL Creatinine 0.8 (0.6-1.0) mg/dL Est Cr Clr Drug Dosing 62.61 mL/min Estimated GFR (MDRD) > 60 (>60) Glucose 115 H (74-106) mg/dL Calcium 8.9 (8.5-10.1) mg/dL Eamon Results last 24 hrs: Microbiology 12/18/16 17:05 Gram Stain - Final Pleural Fluid - Pleural Cavity, Right Wound Culture - Preliminary NO GROWTH AFTER 2 DAYS Anaerobic Culture - Preliminary NO GROWTH AFTER 2 DAYS Med Orders - Current: Current Medications Acetaminophen/Hydrocodone Bitart ([place] 325-5 Mg) 1 tab PO Q4H [facility] Last Admin: 12/21/16 20:47 Dose: 1 tab Alprazolam (Xanax) 0.5 mg PO BID [facility] Last Admin: 12/21/16 20:46 Dose: 0.5 mg Aripiprazole (Abilify) 2.5 mg PO DAILY [facility] Last Admin: 12/21/16 08:25 Dose: 2.5 mg Cyclobenzaprine HCl (Flexeril) 10 mg PO Q6H PRN PRN Reason: Pain Last Admin: 12/20/16 23:08 Dose: 10 mg Famotidine (Pepcid) 20 mg PO DAILY [facility] Last Admin: 12/21/16 08:26 Dose: 20 mg Fluticasone Propionate (Flonase) 0 gm NASBOTH DAILY [facility] Last Admin: 12/21/16 08:26 Dose: 2 spray Hydromorphone HCl (Dilaudid Billet Straightener 15 Mg In Ns 30 Ml) 0 mg IV ASDIRECTED PRN; Protocol PRN Reason: PAIN Last Admin: 12/21/16 20:29 Dose: 15 mg Hydroxyzine HCl (Vistaril) 100 mg IM Q4H PRN PRN Reason: Pain Last Admin: 12/18/16 18:10 Dose: 100 mg Hydroxyzine HCl (Atarax) 100 mg PO Q4H PRN PRN Reason: Pain Last Admin: 12/20/16 17:15 Dose: 100 mg Levothyroxine Sodium (Synthroid) 100 mcg PO DAILY@0730 [facility] Last Admin: 12/21/16 07:22 Dose: 100 mcg Loratadine (Claritin) 10 mg PO DAILY [facility] Last Admin: 12/21/16 08:25 Dose: 10 mg Magnesium Oxide (Magnesium Oxide) 200 mg PO DAILY [facility] Last Admin: 12/21/16 08:26 Dose: 200 mg Naloxone HCl (Narcan) 0.1 mg IV ASDIRECTED PRN PRN Reason: decreased respiratory rate Ondansetron HCl (Zofran Odt) 4 mg PO Q6H PRN PRN Reason: Nausea able to take PO Last Admin: 12/18/16 22:23 Dose: 4 mg Polyethylene Glycol (Miralax) 17 gm PO BID [facility] Last Admin: 12/21/16 20:48 Dose: 17 gm Senna/Docusate Sodium (Senna Plus) 2 tab PO BID [facility] Last Admin: 12/21/16 20:47 Dose: 2 tab Sodium Chloride (Saline Flush) 10 ml FLUSH ASDIRECTED PRN PRN Reason: Keep Vein Open Topiramate (Topamax) 200 mg PO TID [facility] Last Admin: 12/21/16 20:48 Dose: 200 mg Discontinued Medications Acetaminophen/Hydrocodone Bitart ([place] 325-10 Mg) 1 - 2 tab PO Q4H PRN PRN Reason: Pain Last Admin: 12/20/16 13:48 Dose: 2 tab Acetaminophen/Hydrocodone Bitart ([place] 325-5 Mg) 1 tab PO Q4H PRN PRN Reason: Pain Last Admin: 12/21/16 12:04 Dose: 1 tab Bupivacaine HCl/Epinephrine Bitart ([place] 0.5%/Epinephrine 1:200,000) Confirm Administered Dose 50 ml .ROUTE .STK-MED ONE Stop: 12/18/16 15:09 Last Admin: 12/18/16 17:09 Dose: 5 ml Fentanyl (Sublimaze) Confirm Administered Dose 100 mcg .ROUTE .STK-MED ONE Stop: 12/18/16 15:16 Hydromorphone HCl (Dilaudid Billet Straightener 15 Mg In Ns 30 Ml) 0 mg IV ASDIRECTED PRN; Protocol PRN Reason: MACHINE QUILT STUFFER PAIN CONTROL Last Admin: 12/18/16 15:29 Dose: 15 mg Sodium Chloride (Normal Saline) 1,000 mls @ 75 mls/hr IV ASDIRECTED [facility] Last Admin: 12/20/16 04:24 Dose: 75 mls/hr Cefazolin Sodium 2 gm/ Sodium (Chloride) 50 mls @ 100 mls/hr IV ONCALL ONE Stop: 12/18/16 16:29 Last Admin: 02/26/17 15:28 Dose: 100 mls/hr Magnesium Citrate (Citrate Of Magnesia) 296 ml PO ONETIME ONE Stop: 12/21/16 08:53 Last Admin: 12/21/16 12:36 Dose: 296 ml Meperidine HCl (Demerol) 25 mg IVPUSH ONETIME ONE Stop: 12/18/16 16:31 Last Admin: 12/18/16 16:35 Dose: 25 mg Midazolam HCl (Versed 1 Mg/Ml) Confirm Administered Dose 2 mg .ROUTE .STK-MED ONE Stop: 12/18/16 15:16 Naloxone HCl (Narcan) 0.1 mg IV ASDIRECTED PRN PRN Reason: decreased respiratory rate Propofol (Diprivan 20 Ml) Confirm Administered Dose 200 mg .ROUTE .STK-MED ONE Stop: 12/18/16 15:16 Senna/Docusate Sodium (Senna Plus) 1 tab PO DAILY [facility] Last Admin: 12/20/16 08:46 Dose: 1 tab - Exam General: alert, oriented, cooperative, mild distress HEENT: Pupils equal, Pupils reactive, EOMI, Mucous membr. moist/pink Neck: supple Lungs: Decreased breath sounds (and) Cardiovascular: regular rate, regular rhythm Abdomen: bowel sounds present, soft, no tenderness, no distension (Female) Exam: Normal external exam (and), Normal speculum exam, Normal bimanual exam Back Exam: normal inspection, full range of motion Extremities: no edema Peripheral Pulses: 2+: radial (L), radial (R) Skin: warm, dry, intact Neurological: no new focal deficit Psy/Mental Status: alert (is), normal affect, normal mood - Problem List Review Problem List Initiated/Reviewed/Updated: Yes - My Orders Last 24 Hours: My Active Orders 12/21/16 16:00 Acetaminophen/HYDROcodone [[place] 325-5 MG] 1 tab PO Q4H - Plan Plan:: Assessment/Plan: #1. Lung cancer with pneumothorax status post pleurocentesis. A chest tube is in place is still draining 350 cc of fluid. This is being handled by Dr. Joao huerta and she was having significant amount of pain this evening so I restarted the MACHINE QUILT STUFFER with Dilaudid and then cut her back to 15/325 hydrocodone instead of 2. #2. Temporomandibular joint disorder. Condition stable. #3. Dupuytren's disease of palm. Condition stable. #4. Senile cataract of both eyes. #5. Diaphragmatic hernia. Condition stable. Her blood pressure is good control 130/68. if there is lives She did have constipation I did give her citrate of magnesium and she did have a stool this afternoon.
[2016-12-22] MEDS: Cyclobenzaprine 10 MG Tab PO PRN (01:26)
[2016-12-22] MEDS: Acetaminophen/HYDROcodone 325-5 MG Tab PO SCH ×6 (03:52→23:51)
[2016-12-22] MEDS: Levothyroxine 100 MCG Tab PO SCH (07:05)
[2016-12-22] MEDS: Topiramate 100 MG Tab PO SCH ×3 (08:17→20:51)
[2016-12-22] MEDS: ARIPiprazole 10 MG Tab PO SCH (08:18)
[2016-12-22] MEDS: Fluticasone Propionate Nasal Spray 16 GM Bottle NASBOTH SCH (08:18)
[2016-12-22] MEDS: Polyethylene Glycol 3350 Powder 17 GM Packet PO SCH ×2 (08:19→20:51)
[2016-12-22] MEDS: Famotidine 20 MG Tab PO SCH (08:19)
[2016-12-22] MEDS: Magnesium Oxide 400 MG Tab PO SCH (08:20)
[2016-12-22] MEDS: Loratadine 10 MG Tab PO SCH (08:20)
[2016-12-22] MEDS: ALPRAZolam 0.5 MG Tab PO SCH ×2 (08:22→20:51)
--- NOTE | 2016-12-22 08:54 | CR ---
Chest 1V Frontal HISTORY: Chest tube, pneumothorax. COMPARISON: 12/21/2016 FINDINGS: Is a chest tube. A tiny right apical pneumothorax seen previously is not perceptible on to day's film no new infiltrates.
--- NOTE | 2016-12-22 09:34 | PN ---
DATE OF SERVICE: 12/21/2016 The patient has been afebrile with stable vital signs. Chest tube output was around 200 mL, so was a fair bit of fluctuation. Chest x-ray looks good today with there being no fluid or significant pneumothorax. I am not seeing an air leak at this point, and we will try switching over to an atrium dry seal box, which is a smaller container and would be more amenable to her possibly going home with that in place, should the chest tube output continue to be elevated. Liam Shepherd MD /[id number]
--- NOTE | 2016-12-22 18:15 | PCM.PN ---
- General Info Date of Service: 12/22/16 Subjective Update: She says she's doing much better she is able to sleep last night was better and her pain is improved as well. Emotionally she says she is stable. Her pain level is a grade 4-6/10. The pain is sharp worse with certain movement particularly taken of breath. - Review of Systems General: Reports: weakness HEENT: Reports: no symptoms Pulmonary: Reports: shortness of breath, pleuritic chest pain, cough Cardiovascular: Reports: no symptoms Gastrointestinal: Reports: No symptoms, Other (She did pass stool after taking the citrated of magnesium) Genitourinary: Reports: no symptoms Neurological: Reports: no symptoms Psychiatric: Reports: anxiety - Patient Data Vitals - most recent: Last Vital Signs Temp 99.7 F 12/22/16 14:35 Pulse 108 H 12/22/16 14:35 Resp 16 12/22/16 14:35 BP 131/75 12/22/16 14:35 Pulse Ox 93 L 12/22/16 14:35 Weight - most recent: 138 lb 9.6 oz I&O - last 24 hours: Intake & Output 12/22/16 12/22/16 12/22/16 06:59 14:59 22:59 Intake Total 720 840 480 Output Total 120 350 650 Balance 600 490 -170 Eamon Results last 24 hrs: Microbiology 12/18/16 17:05 Gram Stain - Final Pleural Fluid - Pleural Cavity, Right Wound Culture - Final NO GROWTH AFTER 3 DAYS Anaerobic Culture - Final NO GROWTH AFTER 3 DAYS Med Orders - Current: Current Medications Acetaminophen/Hydrocodone Bitart ([place] 325-5 Mg) 1 tab PO Q4H [facility] Last Admin: 12/22/16 17:45 Dose: 1 tab Alprazolam (Xanax) 0.5 mg PO BID [facility] Last Admin: 12/22/16 08:22 Dose: 0.5 mg Aripiprazole (Abilify) 2.5 mg PO DAILY [facility] Last Admin: 12/22/16 08:18 Dose: 2.5 mg Cyclobenzaprine HCl (Flexeril) 10 mg PO Q6H PRN PRN Reason: Pain Last Admin: 12/22/16 01:26 Dose: 10 mg Famotidine (Pepcid) 20 mg PO DAILY [facility] Last Admin: 12/22/16 08:19 Dose: 20 mg Fluticasone Propionate (Flonase) 0 gm NASBOTH DAILY [facility] Last Admin: 12/22/16 08:18 Dose: 1 spray Hydromorphone HCl (Dilaudid Cell Cleaner 15 Mg In Ns 30 Ml) 0 mg IV ASDIRECTED PRN; Protocol PRN Reason: PAIN Last Admin: 12/21/16 20:29 Dose: 15 mg Hydroxyzine HCl (Vistaril) 100 mg IM Q4H PRN PRN Reason: Pain Last Admin: 12/18/16 18:10 Dose: 100 mg Hydroxyzine HCl (Atarax) 100 mg PO Q4H PRN PRN Reason: Pain Last Admin: 12/20/16 17:15 Dose: 100 mg Levothyroxine Sodium (Synthroid) 100 mcg PO DAILY@0730 [facility] Last Admin: 12/22/16 07:05 Dose: 100 mcg Loratadine (Claritin) 10 mg PO DAILY [facility] Last Admin: 12/22/16 08:20 Dose: 10 mg Magnesium Oxide (Magnesium Oxide) 200 mg PO DAILY [facility] Last Admin: 12/22/16 08:20 Dose: 200 mg Naloxone HCl (Narcan) 0.1 mg IV ASDIRECTED PRN PRN Reason: decreased respiratory rate Ondansetron HCl (Zofran Odt) 4 mg PO Q6H PRN PRN Reason: Nausea able to take PO Last Admin: 12/18/16 22:23 Dose: 4 mg Polyethylene Glycol (Miralax) 17 gm PO BID [facility] Last Admin: 12/22/16 08:19 Dose: 17 gm Senna/Docusate Sodium (Senna Plus) 2 tab PO BID [facility] Last Admin: 12/22/16 08:18 Dose: 2 tab Sodium Chloride (Saline Flush) 10 ml FLUSH ASDIRECTED PRN PRN Reason: Keep Vein Open Topiramate (Topamax) 200 mg PO TID [facility] Last Admin: 12/22/16 15:08 Dose: 200 mg Discontinued Medications Acetaminophen/Hydrocodone Bitart ([place] 325-10 Mg) 1 - 2 tab PO Q4H PRN PRN Reason: Pain Last Admin: 12/20/16 13:48 Dose: 2 tab Acetaminophen/Hydrocodone Bitart ([place] 325-5 Mg) 1 tab PO Q4H PRN PRN Reason: Pain Last Admin: 12/21/16 12:04 Dose: 1 tab Bupivacaine HCl/Epinephrine Bitart (Marcaine 0.5%/Epinephrine 1:200,000) Confirm Administered Dose 50 ml .ROUTE .STK-MED ONE Stop: 12/18/16 15:09 Last Admin: 12/18/16 17:09 Dose: 5 ml Fentanyl (Sublimaze) Confirm Administered Dose 100 mcg .ROUTE .STK-MED ONE Stop: 12/18/16 15:16 Hydromorphone HCl (Dilaudid Cell Cleaner 15 Mg In Ns 30 Ml) 0 mg IV ASDIRECTED PRN; Protocol PRN Reason: DEVELOPMENT WRITER PAIN CONTROL Last Admin: 12/18/16 15:29 Dose: 15 mg Sodium Chloride (Normal Saline) 1,000 mls @ 75 mls/hr IV ASDIRECTED MAURICE Last Admin: 12/20/16 04:24 Dose: 75 mls/hr Cefazolin Sodium 2 gm/ Sodium (Chloride) 50 mls @ 100 mls/hr IV ONCALL ONE Stop: 12/18/16 16:29 Last Admin: 12/18/16 15:28 Dose: 100 mls/hr Magnesium Citrate (Citrate Of Magnesia) 296 ml PO ONETIME ONE Stop: 12/21/16 08:53 Last Admin: 12/21/16 12:36 Dose: 296 ml Meperidine HCl (Demerol) 25 mg IVPUSH ONETIME ONE Stop: 12/18/16 16:31 Last Admin: 12/18/16 16:35 Dose: 25 mg Midazolam HCl (Versed 1 Mg/Ml) Confirm Administered Dose 2 mg .ROUTE .STK-MED ONE Stop: 12/18/16 15:16 Naloxone HCl (Narcan) 0.1 mg IV ASDIRECTED PRN PRN Reason: decreased respiratory rate Propofol (Diprivan 20 Ml) Confirm Administered Dose 200 mg .ROUTE .STK-MED ONE Stop: 12/18/16 15:16 Senna/Docusate Sodium (Senna Plus) 1 tab PO DAILY [facility] Last Admin: 12/20/16 08:46 Dose: 1 tab - Exam General: alert, oriented HEENT: Pupils equal, Pupils reactive, EOMI, Mucous membr. moist/pink Neck: supple Lungs: Decreased breath sounds Cardiovascular: regular rate, regular rhythm Peripheral Pulses: 2+: radial (L), radial (R) Skin: warm, dry, intact Wound/Incisions: healing well Neurological: no new focal deficit Psy/Mental Status: anxious - Problem List Review Problem List Initiated/Reviewed/Updated: Yes - Plan Plan:: Assessment/Plan: #1. Lung cancer with pneumothorax status post pleurocentesis. A chest tube is in place is still draining 150 cc of fluid today. This is being handled by Dr. Shepherd. I did start her on a DEVELOPMENT WRITER with Dilaudid for breakthrough pain she'll continue with the hydrocodone. #2. Temporomandibular joint disorder. Condition stable. #3. Dupuytren's disease of palm. Condition stable. #4. Senile cataract of both eyes. #5. Diaphragmatic hernia. Condition stable. Her blood pressure is good control 130/68. if there is lives She did have constipation I did give her citrate of magnesium and she did have a stool this afternoon.
[2016-12-23] MEDS: Acetaminophen/HYDROcodone 325-5 MG Tab PO SCH ×5 (03:34→20:26)
[2016-12-23] MEDS: HYDROmorphone/Normal Saline 15 MG/30 ML PCA IV PRN (03:35)
[2016-12-23] MEDS: Magnesium Oxide 400 MG Tab PO SCH (08:05)
[2016-12-23] MEDS: Levothyroxine 100 MCG Tab PO SCH (08:05)
[2016-12-23] MEDS: Topiramate 100 MG Tab PO SCH ×3 (08:05→20:30)
[2016-12-23] MEDS: Famotidine 20 MG Tab PO SCH (08:05)
[2016-12-23] MEDS: Loratadine 10 MG Tab PO SCH (08:05)
[2016-12-23] MEDS: ARIPiprazole 10 MG Tab PO SCH (08:06)
[2016-12-23] MEDS: Fluticasone Propionate Nasal Spray 16 GM Bottle NASBOTH SCH (08:06)
[2016-12-23] MEDS: Polyethylene Glycol 3350 Powder 17 GM Packet PO SCH ×2 (08:07→20:29)
[2016-12-23] MEDS: ALPRAZolam 0.5 MG Tab PO SCH ×2 (08:13→20:34)
--- NOTE | 2016-12-23 08:22 | PCM.PN ---
- General Info Date of Service: 12/23/16 - Review of Systems General: Reports: no symptoms HEENT: Reports: no symptoms Pulmonary: Reports: pleuritic chest pain Cardiovascular: Reports: no symptoms Gastrointestinal: Reports: No symptoms Genitourinary: Reports: no symptoms Musculoskeletal: Reports: no symptoms Skin: Reports: no symptoms Neurological: Reports: no symptoms Psychiatric: Reports: no symptoms - Patient Data Vitals - most recent: Last Vital Signs Temp 99.1 F 12/23/16 07:00 Pulse 92 12/23/16 07:00 Resp 18 12/23/16 07:00 BP 125/68 12/23/16 07:00 Pulse Ox 96 12/23/16 07:37 Weight - most recent: 138 lb 9.6 oz I&O - last 24 hours: Intake & Output 12/22/16 12/23/16 12/23/16 22:59 06:59 14:59 Intake Total 720 1620 Output Total 1900 1330 Balance -1180 290 Eamon Results last 24 hrs: Microbiology 12/18/16 17:05 Gram Stain - Final Pleural Fluid - Pleural Cavity, Right Wound Culture - Final NO GROWTH AFTER 3 DAYS Anaerobic Culture - Final NO GROWTH AFTER 3 DAYS Med Orders - Current: Current Medications Acetaminophen/Hydrocodone Bitart ([place] 325-5 Mg) 1 tab PO Q4H [facility] Last Admin: 12/23/16 08:04 Dose: 1 tab Alprazolam (Xanax) 0.5 mg PO BID [facility] Last Admin: 12/23/16 08:13 Dose: 0.5 mg Aripiprazole (Abilify) 2.5 mg PO DAILY [facility] Last Admin: 12/23/16 08:06 Dose: 2.5 mg Cyclobenzaprine HCl (Flexeril) 10 mg PO Q6H PRN PRN Reason: Pain Last Admin: 12/22/16 01:26 Dose: 10 mg Famotidine (Pepcid) 20 mg PO DAILY [facility] Last Admin: 12/23/16 08:05 Dose: 20 mg Fluticasone Propionate (Flonase) 0 gm NASBOTH DAILY [facility] Last Admin: 12/23/16 08:06 Dose: 1 spray Hydromorphone HCl (Dilaudid Gas Distribution Supervisor 15 Mg In Ns 30 Ml) 0 mg IV ASDIRECTED PRN; Protocol PRN Reason: PAIN Last Admin: 12/23/16 03:35 Dose: 15 mg Hydroxyzine HCl (Vistaril) 100 mg IM Q4H PRN PRN Reason: Pain Last Admin: 12/18/16 18:10 Dose: 100 mg Hydroxyzine HCl (Atarax) 100 mg PO Q4H PRN PRN Reason: Pain Last Admin: 12/20/16 17:15 Dose: 100 mg Levothyroxine Sodium (Synthroid) 100 mcg PO DAILY@0730 [facility] Last Admin: 12/23/16 08:05 Dose: 100 mcg Loratadine (Claritin) 10 mg PO DAILY [facility] Last Admin: 12/23/16 08:05 Dose: 10 mg Magnesium Oxide (Magnesium Oxide) 200 mg PO DAILY [facility] Last Admin: 12/23/16 08:05 Dose: 200 mg Naloxone HCl (Narcan) 0.1 mg IV ASDIRECTED PRN PRN Reason: decreased respiratory rate Ondansetron HCl (Zofran Odt) 4 mg PO Q6H PRN PRN Reason: Nausea able to take PO Last Admin: 12/18/16 22:23 Dose: 4 mg Polyethylene Glycol (Miralax) 17 gm PO BID [facility] Last Admin: 12/23/16 08:07 Dose: 17 gm Senna/Docusate Sodium (Senna Plus) 2 tab PO BID [facility] Last Admin: 12/23/16 08:05 Dose: 2 tab Sodium Chloride (Saline Flush) 10 ml FLUSH ASDIRECTED PRN PRN Reason: Keep Vein Open Topiramate (Topamax) 200 mg PO TID [facility] Last Admin: 12/23/16 08:05 Dose: 200 mg Discontinued Medications Acetaminophen/Hydrocodone Bitart ([place] 325-10 Mg) 1 - 2 tab PO Q4H PRN PRN Reason: Pain Last Admin: 12/20/16 13:48 Dose: 2 tab Acetaminophen/Hydrocodone Bitart ([place] 325-5 Mg) 1 tab PO Q4H PRN PRN Reason: Pain Last Admin: 12/21/16 12:04 Dose: 1 tab Bupivacaine HCl/Epinephrine Bitart ([place] 0.5%/Epinephrine 1:200,000) Confirm Administered Dose 50 ml .ROUTE .K-MED ONE Stop: 12/18/16 15:09 Last Admin: 12/18/16 17:09 Dose: 5 ml Fentanyl (Sublimaze) Confirm Administered Dose 100 mcg .ROUTE .STK-MED ONE Stop: 12/18/16 15:16 Hydromorphone HCl (Dilaudid Gas Distribution Supervisor 15 Mg In Ns 30 Ml) 0 mg IV ASDIRECTED PRN; Protocol PRN Reason: DEPORTATION OFFICER PAIN CONTROL Last Admin: 12/18/16 15:29 Dose: 15 mg Sodium Chloride (Normal Saline) 1,000 mls @ 75 mls/hr IV ASDIRECTED MAURICE Last Admin: 12/20/16 04:24 Dose: 75 mls/hr Cefazolin Sodium 2 gm/ Sodium (Chloride) 50 mls @ 100 mls/hr IV ONCALL ONE Stop: 12/18/16 16:29 Last Admin: 12/18/16 15:28 Dose: 100 mls/hr Magnesium Citrate (Citrate Of Magnesia) 296 ml PO ONETIME ONE Stop: 12/21/16 08:53 Last Admin: 12/21/16 12:36 Dose: 296 ml Meperidine HCl (Demerol) 25 mg IVPUSH ONETIME ONE Stop: 12/18/16 16:31 Last Admin: 12/18/16 16:35 Dose: 25 mg Midazolam HCl (Versed 1 Mg/Ml) Confirm Administered Dose 2 mg .ROUTE .STK-MED ONE Stop: 12/18/16 15:16 Naloxone HCl (Narcan) 0.1 mg IV ASDIRECTED PRN PRN Reason: decreased respiratory rate Propofol (Diprivan 20 Ml) Confirm Administered Dose 200 mg .ROUTE .STK-MED ONE Stop: 12/18/16 15:16 Senna/Docusate Sodium (Senna Plus) 1 tab PO DAILY [facility] Last Admin: 12/20/16 08:46 Dose: 1 tab - Exam General: alert, oriented HEENT: Pupils equal, Pupils reactive, EOMI, Mucous membr. moist/pink Neck: supple Lungs: Clear to auscultation, Normal respiratory effort Cardiovascular: regular rate, regular rhythm Abdomen: bowel sounds present, soft, no tenderness, no distension Extremities: no edema Peripheral Pulses: 1+: radial (L), radial (R) Skin: warm, dry, intact Wound/Incisions: healing well - Problem List Review Problem List Initiated/Reviewed/Updated: Yes - Plan Plan:: Assessment/Plan: #1. Lung cancer with pneumothorax status post pleurocentesis. A chest tube is in place is still draining 150 cc of fluid today. This is being handled by Dr. Shepherd. Her pain is being controlled well at the present time. #2. Temporomandibular joint disorder. Condition stable. #3. Dupuytren's disease of palm. Condition stable. #4. Senile cataract of both eyes. #5. Diaphragmatic hernia. Condition stable. Her blood pressure is good control 130/68. if there is lives She did have constipation I did give her citrate of magnesium and she did have a stool this afternoon.
--- NOTE | 2016-12-23 09:16 | CR ---
Chest 1V Frontal HISTORY: Chest tube follow-up study. COMPARISON: 12/22/2016 FINDINGS: Right sided chest tube. No perceptible pneumothorax seen. No dense infiltrates. Tiny right -sided effusion. No acute congestive change.
[2016-12-23] MEDS: Cyclobenzaprine 10 MG Tab PO PRN ×2 (13:58→19:30)
[2016-12-23] MEDS: hydrOXYzine HCl 25 MG Tab PO PRN (19:30)
[2016-12-24] MEDS: Acetaminophen/HYDROcodone 325-5 MG Tab PO SCH ×3 (00:20→08:18)
[2016-12-24] MEDS: HYDROmorphone/Normal Saline 15 MG/30 ML PCA IV PRN (02:01)
[2016-12-24] MEDS: Cyclobenzaprine 10 MG Tab PO PRN (02:02)
[2016-12-24 07:16] VITALS: BP 125/59
[2016-12-24] MEDS: Levothyroxine 100 MCG Tab PO SCH (07:25)
[2016-12-24] MEDS: Fluticasone Propionate Nasal Spray 16 GM Bottle NASBOTH SCH (08:19)
[2016-12-24] MEDS: ARIPiprazole 10 MG Tab PO SCH (08:19)
[2016-12-24] MEDS: Loratadine 10 MG Tab PO SCH (08:19)
[2016-12-24] MEDS: Famotidine 20 MG Tab PO SCH (08:20)
[2016-12-24] MEDS: Magnesium Oxide 400 MG Tab PO SCH (08:20)
[2016-12-24] MEDS: Polyethylene Glycol 3350 Powder 17 GM Packet PO SCH (08:20)
[2016-12-24] MEDS: Topiramate 100 MG Tab PO SCH (08:21)
[2016-12-24] MEDS: ALPRAZolam 0.5 MG Tab PO SCH (08:21)
--- NOTE | 2016-12-24 12:43 | PN ---
DATE OF SERVICE: 12/22/2016 The patient has been afebrile with stable vital signs. around 250 mL of chest tube. No air leak is noted. At this point, chest x-ray continues to look good, and we will leave the chest tube in place for now. Possibly, we will see a decrease in the output over the next day or so. Liam Shepherd MD /[id number]
--- NOTE | 2016-12-24 13:10 | PN ---
DATE OF SERVICE: 12/23/2016 The patient has been afebrile with stable vital signs. Chest tube output is around 130 mL, now if it stay so in that range over the next 24 hours, we will pull the chest tube tomorrow morning. Liam Shepherd MD /[id number]
--- NOTE | 2016-12-26 10:49 | CR ---
Portable chest Comparison: Previous day. Findings: There is a right chest tube unchanged in position. There is volume loss with elevation of the right hemidiaphragm. There is no pneumothorax. There are no infiltrates or effusions. Impression: 1. No interval change.
--- NOTE | 2016-12-26 10:50 | CR ---
Portable chest Comparison: Earlier same day. Findings: There has been interval removal of the right chest tube. There is no pneumothorax. The rig ht lung remains well-inflated. Left lung is unremarkable. There are shallow lung volumes. Impression: 1. Uncomplicated removal of right chest tube.
--- NOTE | 2016-12-26 11:24 | DISCH ---
FINAL DIAGNOSIS: Right pneumothorax and large pleural effusion, status post right lower lobectomy. SECONDARY DIAGNOSES: 1. Chronic constipation. 2. History of anxiety and depression. 3. History of treated hypothyroidism. 4. Gastroesophageal reflux disease. PROCEDURE: This was done on 12/18/2016, is right tube thoracostomy. 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 She was doing fairly well at home, when she developed increasing problems with shortness of breath. She did have a large pleural effusion noted and, as an outpatient, had a thoracentesis done. She then re- presented with recurrence of a large pleural effusion, along with a significant pneumothorax. A right chest tube was placed. The patient did have air leak for around another 72 hours and eventually it stopped, and now the chest tube output has come down to around 150 mL for 24 hours, and the tube was pulled today. She will be discharged home with followup with Dr. Shepherd in [facility] this coming Monday with a chest x-ray. She will continue home medications plus Harper 5/325, 1 to 2 tabs q.4 hours p.r.n. pain, #50 and Flexeril 10 mg p.o. q.8 hours p.r.n. muscle spasm, #30 with 1 refill. She will also be scheduled to follow up with her physicians in [place] on a scheduled basis toward the end of the month.
== END 2016-12-24 09:40 | disposition home or self-care (01) | DRG 200 ==
LOC: JP.ED 11:45 → JP.2SS 14:13
PROVIDERS: ADMIT Internal Medicine; ATTEND Surgery
PROC: 0W9930Z Drainage of Right Pleural Cavity with Drainage Device, Percutaneous Approach (ICD-10-PCS; principal; 2016-12-18)
DX: J95.811 Postprocedural pneumothorax (principal); J90 Pleural effusion, not elsewhere classified; Z87.891 Personal history of nicotine dependence; Z85.118 Personal history of other malignant neoplasm of bronchus and lung; Z85.72 Personal history of non-Hodgkin lymphomas; K59.09 Other constipation; Z98.1 Arthrodesis status; F43.10 Post-traumatic stress disorder, unspecified; F41.9 Anxiety disorder, unspecified; F32.9 Major depressive disorder, single episode, unspecified; H54.7 Unspecified visual loss; Z91.040 Latex allergy status; Z88.8 Allergy status to other drugs, medicaments and biological substances; Z91.018 Allergy to other foods; H25.9 Unspecified age-related cataract; E20.9 Hypoparathyroidism, unspecified
CPT/HCPCS: 36415; 71010; 71010-26; 71020; 71020-26; 80048; 85025; 87070; 87075; 87205; 94762; 99285-25; A9270-GY; J0690; J1170; J2175; J2250; J2704; J3010; J3410; J7040; J7050

== ENCOUNTER 2017-06-14 10:36 | Emergency (ER) | payer MEDICAID ==
[2017-06-14 11:24] VITALS: BP 121/74
[2017-06-14] MEDS ORDERED: Ketorolac 60 MG/2 ML SDV IM ONE (12:42)
--- NOTE | 2017-06-14 12:42 | CT ---
Head wo Cont Total DLP 611 mGycm. INDICATION: persistent headache COMPARISON: None. FINDINGS: No acute intracranial hemorrhage, mass, or edema. Noncontrast head CT otherwise negative. IMPRESSION: Negative Exam.
--- NOTE | 2017-06-14 12:48 | EDM.PDOC ---
ED HPI GENERAL MEDICAL PROBLEM - General Chief Complaint: Headache Stated Complaint: HEADACHE Time Seen by Provider: 06/14/17 11:40 Source of Information: Reports: Patient, Family History Limitations: Reports: No Limitations - History of Present Illness INITIAL COMMENTS - FREE TEXT/NARRATIVE: 61-year-old female with chronic migraines that have been under good control with Topamax for the last several years has had a persistent breakthrough migraine for the past week and a half. She has a history of cancer that is supposedly in remission and it's worrying her. She has nausea but no vomiting, does have photophobia, but no other neurologic symptoms such as weakness, paresthesias, visual complaints or recent trauma. She is also added Tylenol and aspirin. Onset: Unknown/Unsure Duration: Waxing/Waning (Symptoms are waxing and waning but not completely going away, have been present for a week and a half) Severity: Moderate Associated Symptoms: Reports: Other (Photophobia and nausea) Left Headache Pain Score (Numeric/FACES): 10 - Related Data Allergies Allergy/AdvReac Type Severity Reaction Status Date / Time gluten Allergy GI Verified 06/14/17 11:52 intolerance latex Allergy Cannot Verified 06/14/17 11:52 Remember docusate calcium AdvReac constipatio Verified 06/14/17 11:52 [From Agatha] n Home Meds: Home Meds ALPRAZolam [Xanax] 0.5 mg PO BID 08/04/14 [History] ARIPiprazole [Abilify] 5 mg PO DAILY 08/04/14 [History] Fluticasone Propionate [Flonase] 1 spray ROSSI DAILY 08/04/14 [History] Topiramate [Topamax] 200 mg PO BID 08/04/14 [History] Levothyroxine Sodium 100 mcg PO DAILY 02/24/15 [History] Polyethylene Glycol 3350 [MiraLAX] 17 gram PO BID 02/24/15 [History] Sennosides/Docusate Sodium [Sennalax-S] 2 tab PO BID 04/05/16 [History] Famotidine 20 mg PO DAILY 12/17/16 [History] Loratadine [Claritin] 10 mg PO BEDTIME 12/17/16 [History] Magnesium 500 mg PO BEDTIME 12/17/16 [History] Penciclovir [Denavir 1% Crm] 1.5 gm TOP Q2H 12/23/16 [History] Topiramate [Topamax] 100 mg PO DAILY 06/14/17 [History] Past Medical History HEENT History: Reports: Cataract, Hard of Hearing, Impaired Vision Other HEENT History: Bilateral hearing aids Other Respiratory History: THORACENTESIS OF RIGHT LUNG DONE THIS WEEK AT [facility] IN [place]. 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: Musculoskeletal History: Reports: Fracture Other Musculoskeletal History: fx arm,fx ankle Neurological History: Reports: Migraines Psychiatric History: Reports: Anxiety, Depression, PTSD Endocrine/Metabolic History: Reports: Hypoparathyroidism Oncologic (Cancer) History: Reports: Lung, Lymphoma - Infectious Disease History Infectious Disease History: Reports: Chicken Pox, Measles, Mumps - Past Surgical History Respiratory Surgical History: Reports: Lung Resection, Thoracotomy GI Surgical History: Reports: Other (See Below) Other GI Surgeries/Procedures: hiatal hernia repair Endocrine Surgical History: Reports: None Neurological Surgical History: Reports: Laminectomy, Spinal Fusion Musculoskeletal Surgical History: Reports: Other (See Below) Other Musculoskeletal Surgeries/Procedures:: back surgery x2 Social & Family History - Tobacco Use Smoking Status *Q: Former Smoker Years of Tobacco use: 50 Packs/Tins Daily: 0.5 Used Tobacco, but Quit: Yes Month Tobacco Last Used: unknown Second Hand Smoke Exposure: No - Caffeine Use Caffeine Use: Reports: Coffee - Alcohol Use Days Per Week of Alcohol Use: 0 - Recreational Drug Use Recreational Drug Use: No ED ROS GENERAL - Review of Systems Review Of Systems: See Below Constitutional: Denies: Fever, Chills, Malaise HEENT: Reports: Other (Photophobia). Denies: Vision Change Respiratory: Denies: Shortness of Breath, Cough Cardiovascular: Denies: Chest Pain, Palpitations Endocrine: Reports: Fatigue GI/Abdominal: Reports: Nausea. Denies: Abdominal Pain, Vomiting : Reports: No Symptoms, Other Skin: Reports: No Symptoms Neurological: Reports: Headache. Denies: Dizziness, Paresthesia, Difficulty Walking, Weakness, Change in Speech Psychiatric: Reports: Anxiety - Physical Exam Exam: See Below Exam Limited By: No Limitations General Appearance: Alert, No Apparent Distress Eye Exam: Bilateral Eye: Normal Inspection Neck: Supple, Non-Tender Respiratory/Chest: No Respiratory Distress, Lungs Clear Cardiovascular: Regular Rate, Rhythm Neuro Exam (Abbreviated): Alert, Oriented, No Motor/Sensory Deficits Psychiatric: Anxious Skin Exam: Warm, Dry Course - Vital Signs Last Recorded V/S: Last Vital Signs Temp 97.7 F 06/14/17 12:05 Pulse 96 06/14/17 12:05 Resp 14 06/14/17 12:05 BP 121/74 06/14/17 12:05 Pulse Ox 100 06/14/17 12:05 - Orders/Labs/Meds Meds: Medications Discontinued Medications Generic Name Dose Route Start Last Admin Trade Name Bo PRN Reason Stop Dose Admin Ketorolac Tromethamine 60 mg 06/14/17 12:42 06/14/17 12:52 Toradol IM 06/14/17 12:43 60 mg ONETIME ONE Administration - Re-Assessments/Exams Free Text/Narrative Re-Assessment/Exam: 06/14/17 12:49 CT the head was obtained and is normal. Patient was then given 60 mg of Toradol IM. 06/14/17 13:29 Toradol did not resolve but did improve her headache. She was given 10 additional doses to take one every 6 hours for the next 48 hours and then follow up with Dr. Meuller on Monday. She could return sooner if worsening. Departure - Departure Time of Disposition: 13:54 Disposition: Home, Self-Care 01 Condition: Good Clinical Impression: Migraine - Discharge Information Instructions: Recurrent Migraine Headache, [id number] Referrals: Sridhar Mueller Sr, MD [Primary Care Provider] - Forms: ED Department Discharge Care Plan Goals: Take one pill of ketorolac every 6 hours for the next 2-3 days. Recheck on Monday if not improving satisfactorily. Dr. Mueller is working and would like to see you Monday if needed. Return to the emergency room if worsening despite treatment or you develop other concerns.
== END 2017-06-14 13:30 | disposition home or self-care (01) ==
LOC: JP.ED 10:36
DX: G43.909 Migraine, unspecified, not intractable, without status migrainosus (principal); F41.9 Anxiety disorder, unspecified; F32.9 Major depressive disorder, single episode, unspecified; E20.9 Hypoparathyroidism, unspecified; Z85.72 Personal history of non-Hodgkin lymphomas; Z98.890 Other specified postprocedural states; Z87.891 Personal history of nicotine dependence; Z79.899 Other long term (current) drug therapy; Z88.8 Allergy status to other drugs, medicaments and biological substances; Z91.018 Allergy to other foods; Z91.040 Latex allergy status
CPT/HCPCS: 70450; 96372; 99284; J1885; 99283

== ENCOUNTER 2023-12-10 05:19 | Inpatient (IN) | payer MEDICARE ==
[2023-12-10 06:33] LABS: BASOPHILS PERCENT AUTO 0.3 % (0.1-1.3); HEMATOCRIT 24.5 % (34.3-46.0); HEMOGLOBIN 7.9 g/dL (11.2-15.5); IMMATURE GRAN ABSOLUTE AUTO 0.04 K/uL (0.00-0.23); IMMATURE GRAN PERCENT AUTO 1.1 % (0.0-0.7); LYMPHOCYTES ABSOLUTE AUTO 0.21 K/uL (0.8-3.3); MEAN CORPUSCULAR HEMOGLOBIN 28.6 pg (31.6-35.5); MEAN CORPUSCULAR HGB CONC 32.2 g/dL (31.6-35.5); MEAN CORPUSCULAR VOLUME 88.8 fL (81.4-99.0); MONOCYTES ABSOLUTE AUTO 0.53 K/uL (0.20-0.90); MONOCYTES PERCENT AUTO 15.1 % (3.3-12.6); NEUTROPHILS ABSOLUTE AUTO 2.72 K/uL (1.0-7.6); NEUTROPHILS PERCENT AUTO 77.5 % (40.0-78.1); PLATELET COUNT,PLT 162 K/uL (130-375); RED BLOOD CELL COUNT 2.76 M/uL (3.77-5.24); WHITE BLOOD CELL COUNT,WBC 3.5 K/uL (3.2-11.0)
[2023-12-10 06:35] LABS: BASOPHILS ABSOLUTE AUTO 0.01 K/uL (0.00-0.10)
[2023-12-10 06:54] LABS: A/G RATIO 0.4 (1.2-2.2); ALANINE AMINOTRANSFERASE,ALT 12 U/L (12-78); ALBUMIN 1.7 g/dL (3.4-5.0); ALKALINE PHOSPHATASE 126 U/L (46-116); ANION GAP 12.4 mmol/L (5.0-14.0); ASPARTATE AMNIOTRANSFERASE,AST 21 U/L (15-37); BILIRUBIN TOTAL 0.7 mg/dL (0.2-1.0); BLOOD UREA NITROGEN,BUN 16 mg/dL (7-18); CALCIUM 7.9 mg/dL (8.5-10.1); CARBON DIOXIDE,CO2 23 mmol/L (21-32); CHLORIDE,CL 102 mmol/L (100-108); CREATININE 0.8 mg/dL (0.6-1.0); EST CRCL DRUG DOSING (CG) 54.75 mL/min; ESTIMATED GFR 79 mL/min (>60); GLUCOSE RANDOM 110 mg/dL (74-106); POTASSIUM,K 3.4 mmol/L (3.6-5.2); PROTEIN TOTAL,TP 5.8 g/dL (6.4-8.2); SODIUM,NA 134 mmol/L (140-148)
[2023-12-10 07:16] LABS: CORONAVIRUS COVID-19 NAA NEGATIVE (NEGATIVE); INFLUENZA A NAA NEGATIVE (NEGATIVE); INFLUENZA B NAA NEGATIVE (NEGATIVE); RESPIRATORY SYNCYTIAL VIR NAA NEGATIVE (NEGATIVE)
[2023-12-10] MEDS ORDERED: Sodium Chloride 0.9% 10 ML Syringe FLUSH PRN (09:06)
[2023-12-10] MEDS ORDERED: Furosemide 20 MG Tab PO PRN (09:16)
[2023-12-10] MEDS: Spironolactone 25 MG Tab PO SCH (11:34)
[2023-12-10] MEDS: Potassium Chloride 20 MEQ Tab.ER PO SCH (11:34)
[2023-12-10] MEDS: cefTRIAXone 2 GM in Sodium Chloride 0.9% 50 ML IV ONE (11:34)
[2023-12-10] MEDS: Prochlorperazine 10 MG Tab PO SCH (11:34)
[2023-12-10] MEDS: Sennosides 8.6 MG Tab PO SCH (11:35)
[2023-12-10] MEDS: PENCICLOVIR 1% TOP SCH (11:35)
[2023-12-10] MEDS: Polyethylene Glycol 3350 Powder 17 GM Packet PO SCH (11:36)
[2023-12-10] MEDS: Loratadine 10 MG Tab PO SCH (11:36)
[2023-12-10] MEDS: DULoxetine 20 MG Cap PO SCH (11:36)
[2023-12-10] MEDS: Levothyroxine 100 MCG Tab PO SCH (11:37)
[2023-12-10] MEDS: Potassium Chloride 10 MEQ Cap.ER PO SCH (12:04)
[2023-12-10] MEDS: Acetaminophen 325 MG Tab PO PRN (12:07)
[2023-12-10] MEDS: Cyclobenzaprine 10 MG Tab PO SCH (14:43)
[2023-12-10] MEDS: HYDROXYZINE PAMOATE 25 MG PO SCH (15:05)
[2023-12-10] MEDS: Morphine 15 MG Tab PO PRN (18:05)
[2023-12-10] MEDS ORDERED: Non-Formulary Medication 1 Each (Loratadine [Claritin] 10 MG Capsule) PO SCH (21:00)
[2023-12-10] MEDS ORDERED: Polyethylene Glycol 3350 Powder 238 GM Bot PO SCH (21:00)
[2023-12-10] MEDS: Bisacodyl 5 MG Tab PO SCH (21:06)
[2023-12-10] MEDS: Magnesium Oxide 400 MG Tab PO SCH (21:06)
[2023-12-10] MEDS: Topiramate 100 MG Tab PO SCH (21:06)
[2023-12-10] MEDS: traZODone 50 MG Tab PO SCH (21:06)
[2023-12-10] MEDS: Pramipexole 0.5 MG Tab PO SCH (21:07)
[2023-12-10] MEDS: ALPRAZolam 0.5 MG Tab PO SCH (21:13)
[2023-12-10 23:04] LABS: APPEARANCE,URINE CLEAR (CLEAR); BILIRUBIN,URINE SMALL (NEGATIVE); COLOR,URINE YELLOW (YELLOW); GLUCOSE,URINE NEGATIVE (NEGATIVE); KETONES,URINE NEGATIVE (NEGATIVE); LEUKOCYTE ESTERASE,URINE NEGATIVE (NEGATIVE); NITRITE,URINE NEGATIVE (NEGATIVE); OCCULT BLOOD,URINE NEGATIVE (NEGATIVE); PH,URINE 6.5 (5.0-8.0); PROTEIN,URINE NEGATIVE (NEGATIVE); UROBILINOGEN,URINE >=8.0 EU/dL (0.2-1.0)
[2023-12-10] MEDS: hydrOXYzine HCl 25 MG Tab PO ONE (23:08)
[2023-12-10 23:14] LABS: AMORPHOUS SEDIMENT,URINE NOT SEEN; BACTERIA,URINE FEW; EPITHELIAL CELLS,URINE FEW; MUCUS,URINE NOT SEEN; RBC,URINE 0-5 (0-5); WBC,URINE 0-5 (0-5)
[2023-12-10] MEDS: Sodium Chloride 0.9% 1,000 ML IV SCH (23:25)
[2023-12-11 05:41] LABS: BASOPHILS PERCENT AUTO 0.3 % (0.1-1.3); HEMOGLOBIN 8.6 g/dL (11.2-15.5); IMMATURE GRAN ABSOLUTE AUTO 0.03 K/uL (0.00-0.23); IMMATURE GRAN PERCENT AUTO 0.8 % (0.0-0.7); LYMPHOCYTES ABSOLUTE AUTO 0.31 K/uL (0.8-3.3); LYMPHOCYTES PERCENT AUTO 8.2 % (11.4-47.7); MEAN CORPUSCULAR HEMOGLOBIN 28.6 pg (31.6-35.5); MEAN CORPUSCULAR HGB CONC 31.9 g/dL (31.6-35.5); MEAN CORPUSCULAR VOLUME 89.7 fL (81.4-99.0); MONOCYTES ABSOLUTE AUTO 0.33 K/uL (0.20-0.90); MONOCYTES PERCENT AUTO 8.7 % (3.3-12.6); NEUTROPHILS ABSOLUTE AUTO 3.11 K/uL (1.0-7.6); PLATELET COUNT,PLT 193 K/uL (130-375); RED BLOOD CELL COUNT 3.01 M/uL (3.77-5.24); WHITE BLOOD CELL COUNT,WBC 3.8 K/uL (3.2-11.0)
[2023-12-11 05:58] LABS: BASOPHILS ABSOLUTE AUTO 0.01 K/uL (0.00-0.10)
[2023-12-11] MEDS: Pantoprazole 40 MG Tab.CR PO SCH (08:01)
[2023-12-11] MEDS: PLECANATIDE 3 MG PO SCH (08:03)
[2023-12-11] MEDS: ABILIFY 2 MG PO SCH (08:03)
[2023-12-11] MEDS: Fluticasone NASAL Spray 16 GM Bottle NAS SCH (08:03)
[2023-12-11] MEDS: IBRUTINIB PO SCH (08:03)
[2023-12-11] MEDS ORDERED: Non-Formulary Medication 1 Each (Hydroxyzine Pamoate [Hydroxyzine Pamoate] 25 MG) PO PRN (08:59)
[2023-12-11] MEDS ORDERED: Loratadine 10 MG Tab PO SCH (09:00)
[2023-12-11] MEDS: cefTRIAXone 1 GM in Sodium Chloride 0.9% 50 ML IV SCH (10:43)
[2023-12-11] MEDS: Tamsulosin 0.4 MG Cap.ER PO SCH (17:33)
[2023-12-11] MEDS ORDERED: ALPRAZolam 0.5 MG Tab PO PRN (20:48)
[2023-12-12] MEDS ORDERED: hydrOXYzine HCl 25 MG Tab PO PRN (08:51)
[2023-12-12] MEDS ORDERED: Potassium Chloride 20 MEQ Tab.ER PO SCH (09:15)
[2023-12-12] MEDS: Benzocaine/Cetylpyridinium/Menthol Lozenge MUCMEM PRN (16:38)
[2023-12-13 05:55] LABS: HEMATOCRIT 21.4 % (34.3-46.0); MEAN CORPUSCULAR HEMOGLOBIN 28.5 pg (31.6-35.5); MEAN CORPUSCULAR HGB CONC 31.8 g/dL (31.6-35.5); MEAN CORPUSCULAR VOLUME 89.5 fL (81.4-99.0); RED BLOOD CELL COUNT 2.39 M/uL (3.77-5.24); WHITE BLOOD CELL COUNT,WBC 4.4 K/uL (3.2-11.0)
[2023-12-13 06:00] LABS: HEMOGLOBIN 6.8 g/dL (11.2-15.5)
[2023-12-13 06:04] LABS: CALCIUM 8.3 mg/dL (8.5-10.1); CREATININE 0.8 mg/dL (0.6-1.0); EST CRCL DRUG DOSING (CG) 56.5 mL/min
[2023-12-13 07:17] LABS: RETICULOCYTE COUNT PERCENT 0.63 % (0.03-0.11)
[2023-12-13 12:06] VITALS: BP 126/48; PULSE 86
== END 2023-12-13 14:25 | disposition home or self-care (01) | DRG 948 ==
LOC: JP.ED 05:19 → JP.MS 09:06
PROVIDERS: ADMIT Internal Medicine; ATTEND Internal Medicine
PROC: 0T9B70Z Drainage of Bladder with Drainage Device, Via Natural or Artificial Opening (ICD-10-PCS; principal; 2023-12-10)
DX: R41.0 Disorientation, unspecified (principal); R50.9 Fever, unspecified; D80.1 Nonfamilial hypogammaglobulinemia; C88.0 Waldenstrom macroglobulinemia; H91.90 Unspecified hearing loss, unspecified ear; Z91.018 Allergy to other foods; G43.909 Migraine, unspecified, not intractable, without status migrainosus; F41.9 Anxiety disorder, unspecified; F17.210 Nicotine dependence, cigarettes, uncomplicated; D64.9 Anemia, unspecified; M81.0 Age-related osteoporosis without current pathological fracture; E53.8 Deficiency of other specified B group vitamins; F31.9 Bipolar disorder, unspecified; F43.10 Post-traumatic stress disorder, unspecified; K21.00 Gastro-esophageal reflux disease with esophagitis, without bleeding; D12.6 Benign neoplasm of colon, unspecified; K58.9 Irritable bowel syndrome, unspecified; E03.9 Hypothyroidism, unspecified; H26.9 Unspecified cataract; M72.0 Palmar fascial fibromatosis [Dupuytren]; M26.609 Unspecified temporomandibular joint disorder, unspecified side; R33.9 Retention of urine, unspecified; Z91.040 Latex allergy status; Z88.8 Allergy status to other drugs, medicaments and biological substances; Z79.899 Other long term (current) drug therapy; Z97.4 Presence of external hearing-aid; Z98.890 Other specified postprocedural states; Z98.1 Arthrodesis status; Z85.118 Personal history of other malignant neoplasm of bronchus and lung
CPT/HCPCS: 0241U; 36415; 36430; 51701; 51702; 51798; 70450; 71045; 80048; 80053; 81001; 83605; 84132; 85018; 85025; 85027; 85045; 86850; 86900; 86901; 86920; 86922; 97161; 97165; 99285; A9270-GY; J0696; J3490; J7030; P9016; Q0164

== ENCOUNTER 2025-03-09 19:10 | Emergency (ER) | payer MEDICARE ==
[2025-03-09 19:29] VITALS: BP 149/57; PULSE 92
[2025-03-09 20:01] LABS: BASOPHILS PERCENT AUTO 0.4 % (0.1-1.3); EOSINOPHILS ABSOLUTE AUTO 0.03 K/uL (0.00-0.40); EOSINOPHILS PERCENT AUTO 0.6 % (0.0-5.4); HEMATOCRIT 36.7 % (34.3-46.0); HEMOGLOBIN 11.8 g/dL (11.2-15.5); IMMATURE GRAN PERCENT AUTO 0.4 % (0.0-0.7); LYMPHOCYTES ABSOLUTE AUTO 0.84 K/uL (0.8-3.3); LYMPHOCYTES PERCENT AUTO 16.3 % (11.4-47.7); MEAN CORPUSCULAR HEMOGLOBIN 30.7 pg (31.6-35.5); MEAN CORPUSCULAR HGB CONC 32.2 g/dL (31.6-35.5); MEAN CORPUSCULAR VOLUME 95.6 fL (81.4-99.0); MONOCYTES ABSOLUTE AUTO 0.52 K/uL (0.20-0.90); MONOCYTES PERCENT AUTO 10.1 % (3.3-12.6); NEUTROPHILS ABSOLUTE AUTO 3.73 K/uL (1.0-7.6); NEUTROPHILS PERCENT AUTO 72.2 % (40.0-78.1); PLATELET COUNT,PLT 168 K/uL (130-375); RED BLOOD CELL COUNT 3.84 M/uL (3.77-5.24); WHITE BLOOD CELL COUNT,WBC 5.2 K/uL (3.2-11.0)
[2025-03-09 20:03] LABS: BASOPHILS ABSOLUTE AUTO 0.02 K/uL (0.00-0.10); IMMATURE GRAN ABSOLUTE AUTO 0.02 K/uL (0.00-0.23)
[2025-03-09] MEDS: diphenhydrAMINE 50 MG/ML SDV IVPUSH ONE (20:13)
[2025-03-09] MEDS: Ketorolac 30 MG/ML SDV IVPUSH ONE (20:13)
[2025-03-09] MEDS: Sodium Chloride 0.9% 1,000 ML IV SCH (20:14)
[2025-03-09 20:24] LABS: A/G RATIO 0.6 (1.2-2.2); ALANINE AMINOTRANSFERASE,ALT 16 U/L (12-78); ALBUMIN 2.5 g/dL (3.4-5.0); ALKALINE PHOSPHATASE 187 U/L (46-116); ANION GAP 12.7 mmol/L (5.0-14.0); ASPARTATE AMNIOTRANSFERASE,AST 21 U/L (15-37); BILIRUBIN TOTAL 0.3 mg/dL (0.2-1.0); BLOOD UREA NITROGEN,BUN 9 mg/dL (7-18); CALCIUM 8.7 mg/dL (8.5-10.1); CARBON DIOXIDE,CO2 25 mmol/L (21-32); CHLORIDE,CL 105 mmol/L (100-108); EST CRCL DRUG DOSING (CG) 44.56 mL/min; ESTIMATED GFR 60 mL/min (>60); GLUCOSE RANDOM 170 mg/dL (74-106); POTASSIUM,K 3.7 mmol/L (3.6-5.2); PROTEIN TOTAL,TP 6.4 g/dL (6.4-8.2); SODIUM,NA 139 mmol/L (140-148)
[2025-03-09] MEDS: Sodium Chloride 0.9% 100 ML IV SCH (22:53)
[2025-03-09] MEDS: Iopamidol 755 Mg/ML 100 ML Bottle IV SCH (22:53)
[2025-03-09] MEDS: Sodium Chloride 0.9% 10 ML Syringe FLUSH PRN (22:53)
== END 2025-03-10 01:35 | disposition home or self-care (01) ==
LOC: JP.ED 19:10
DX: R20.0 Anesthesia of skin (principal); K14.9 Disease of tongue, unspecified; Z79.899 Other long term (current) drug therapy; Z91.018 Allergy to other foods; Z91.040 Latex allergy status; Z88.8 Allergy status to other drugs, medicaments and biological substances
CPT/HCPCS: 36415; 70450; 70496; 70498; 80053; 83605; 84484; 85025; 96374; 96375; 99284; J1200; J1885; J7030; Q9967

== ENCOUNTER 2025-03-16 16:18 | Observation (INO) | payer MEDICARE ==
[2025-03-16] MEDS: Sodium Chloride 0.9% 1,000 ML IV SCH ×2 (16:59→21:29)
[2025-03-16 17:00] LABS: BASOPHILS PERCENT AUTO 0.2 % (0.1-1.3); HEMATOCRIT 27.8 % (34.3-46.0); HEMOGLOBIN 8.8 g/dL (11.2-15.5); IMMATURE GRAN ABSOLUTE AUTO 0.04 K/uL (0.00-0.23); IMMATURE GRAN PERCENT AUTO 0.9 % (0.0-0.7); LYMPHOCYTES ABSOLUTE AUTO 0.21 K/uL (0.8-3.3); LYMPHOCYTES PERCENT AUTO 4.5 % (11.4-47.7); MEAN CORPUSCULAR HEMOGLOBIN 30.2 pg (31.6-35.5); MEAN CORPUSCULAR HGB CONC 31.7 g/dL (31.6-35.5); MEAN CORPUSCULAR VOLUME 95.5 fL (81.4-99.0); MONOCYTES ABSOLUTE AUTO 0.19 K/uL (0.20-0.90); MONOCYTES PERCENT AUTO 4.1 % (3.3-12.6); NEUTROPHILS ABSOLUTE AUTO 4.23 K/uL (1.0-7.6); NEUTROPHILS PERCENT AUTO 90.3 % (40.0-78.1); PLATELET COUNT,PLT 130 K/uL (130-375); RED BLOOD CELL COUNT 2.91 M/uL (3.77-5.24); WHITE BLOOD CELL COUNT,WBC 4.7 K/uL (3.2-11.0)
[2025-03-16 17:14] LABS: BASOPHILS ABSOLUTE AUTO 0.01 K/uL (0.00-0.10)
[2025-03-16 17:24] LABS: A/G RATIO 0.4 (1.2-2.2); ALANINE AMINOTRANSFERASE,ALT 18 U/L (12-78); ALBUMIN 1.7 g/dL (3.4-5.0); ALKALINE PHOSPHATASE 142 U/L (46-116); ASPARTATE AMNIOTRANSFERASE,AST 14 U/L (15-37); BILIRUBIN TOTAL 0.3 mg/dL (0.2-1.0); BLOOD UREA NITROGEN,BUN 16 mg/dL (7-18); CALCIUM 8.5 mg/dL (8.5-10.1); CARBON DIOXIDE,CO2 19 mmol/L (21-32); CHLORIDE,CL 104 mmol/L (100-108); CREATININE 1.2 mg/dL (0.6-1.0); EST CRCL DRUG DOSING (CG) 36.95 mL/min; ESTIMATED GFR 48 mL/min (>60); GLUCOSE RANDOM 243 mg/dL (74-106); POTASSIUM,K 3.5 mmol/L (3.6-5.2); PROTEIN TOTAL,TP 5.6 g/dL (6.4-8.2); SODIUM,NA 133 mmol/L (140-148)
[2025-03-16 17:35] LABS: ANION GAP 13.5 mmol/L (5.0-14.0)
[2025-03-16 19:43] LABS: RETICULOCYTE COUNT PERCENT 0.55 % (0.53-2.48)
[2025-03-16] MEDS ORDERED: hydrOXYzine HCl 25 MG Tab PO PRN (19:59)
[2025-03-16] MEDS ORDERED: Ondansetron 4 MG Tab.DIS PO PRN (19:59)
[2025-03-16] MEDS ORDERED: Sennosides/Docusate Sodium 50-8.6 MG Tab PO PRN ×2 (19:59→20:22)
[2025-03-16] MEDS ORDERED: Ondansetron 4 MG/2 ML SDV IV PRN (19:59)
[2025-03-16] MEDS ORDERED: Magnesium Hydroxide 400 MG/5 ML Susp 30 ML Cup PO PRN (19:59)
[2025-03-16] MEDS ORDERED: PENCICLOVIR TOP SCH (19:59)
[2025-03-16] MEDS ORDERED: Melatonin 3 MG Tab PO PRN (19:59)
[2025-03-16] MEDS: Acetaminophen 325 MG Tab PO PRN (20:14)
[2025-03-16] MEDS ORDERED: ALPRAZolam 0.5 MG Tab PO SCH (21:00)
[2025-03-16] MEDS ORDERED: Cyclobenzaprine 10 MG Tab PO SCH (21:00)
[2025-03-16] MEDS ORDERED: Sennosides/Docusate Sodium 50-8.6 MG Tab PO SCH (21:00)
[2025-03-16] MEDS ORDERED: Polyethylene Glycol 3350 Powder 238 GM Bot PO ONE (21:00)
[2025-03-16] MEDS ORDERED: Non-Formulary Medication 1 Each (Loratadine [Claritin] 10 MG Capsule) PO SCH (21:00)
[2025-03-16] MEDS: Morphine 15 MG Tab PO PRN (21:20)
[2025-03-16] MEDS: Loratadine 10 MG Tab PO ONE (21:21)
[2025-03-16] MEDS: Potassium Chloride 10 MEQ Cap.ER PO ONE (21:21)
[2025-03-16] MEDS: Topiramate 100 MG Tab PO ONE (21:22)
[2025-03-16] MEDS: Magnesium Oxide 400 MG Tab PO ONE (21:22)
[2025-03-16] MEDS: ALPRAZolam 0.5 MG Tab PO ONE (21:22)
[2025-03-16] MEDS: Cyclobenzaprine 10 MG Tab PO ONE (21:22)
[2025-03-16] MEDS: Sennosides/Docusate Sodium 50-8.6 MG Tab PO ONE (21:22)
[2025-03-16] MEDS: Polyethylene Glycol 3350 Powder 17 GM Packet PO ONE (21:23)
[2025-03-16] MEDS: Pramipexole 0.5 MG Tab PO ONE (21:23)
[2025-03-16] MEDS: traZODone 50 MG Tab PO ONE (21:23)
[2025-03-16] MEDS: Potassium Chloride 20 MEQ Tab.ER PO ONE (21:25)
[2025-03-17 05:48] LABS: HEMATOCRIT 29.1 % (34.3-46.0); HEMOGLOBIN 9.1 g/dL (11.2-15.5); MEAN CORPUSCULAR HEMOGLOBIN 29.8 pg (31.6-35.5); MEAN CORPUSCULAR HGB CONC 31.3 g/dL (31.6-35.5); MEAN CORPUSCULAR VOLUME 95.4 fL (81.4-99.0); RED BLOOD CELL COUNT 3.05 M/uL (3.77-5.24); WHITE BLOOD CELL COUNT,WBC 3.6 K/uL (3.2-11.0)
[2025-03-17 06:02] LABS: CREATININE 0.8 mg/dL (0.6-1.0); EST CRCL DRUG DOSING (CG) 56.1 mL/min; POTASSIUM,K 4.6 mmol/L (3.6-5.2)
[2025-03-17 06:06] LABS: CALCIUM 8.4 mg/dL (8.5-10.1)
[2025-03-17 06:16] LABS: IRON,FE 8 ug/dL (50-170); PERCENT FE SATURATION 5 % (20-55); TOTAL IRON BINDING CAPACITY 156 ug/dl (250-450)
[2025-03-17 06:17] LABS: ANION GAP 13.6 mmol/L (5.0-14.0)
[2025-03-17] MEDS ORDERED: Pantoprazole 40 MG Tab.CR PO SCH (07:30)
[2025-03-17] MEDS ORDERED: IBRUTINIB PO SCH (09:00)
[2025-03-17] MEDS ORDERED: DULoxetine 30 MG Cap PO SCH ×2 (09:00)
[2025-03-17] MEDS ORDERED: Fluticasone NASAL Spray 16 GM Bottle NAS SCH (09:00)
[2025-03-17] MEDS ORDERED: Furosemide 20 MG Tab PO SCH (09:00)
[2025-03-17] MEDS ORDERED: Famotidine 20 MG Tab PO SCH (09:00)
[2025-03-17] MEDS ORDERED: Hydrochlorothiazide 25 MG Tab PO SCH (09:00)
[2025-03-17] MEDS ORDERED: Loratadine 10 MG Tab PO SCH (09:00)
[2025-03-17] MEDS: CYCLOBENZAPRINE 10 MG PO SCH (10:21)
[2025-03-17] MEDS: DOCUSATE SODIUM PO SCH (10:22)
[2025-03-17] MEDS: SENNOSIDES PO SCH (10:22)
[2025-03-17] MEDS: LEVOTHYROXINE 100 MCG PO SCH (10:23)
[2025-03-17] MEDS: SPIRONOLACTONE 25 MG PO SCH (10:23)
[2025-03-17] MEDS: TOPIRAMATE 200 MG PO SCH (10:23)
[2025-03-17] MEDS: LORATADINE 10 MG PO SCH (10:24)
[2025-03-17] MEDS: PROCHLORPERAZINE 10 MG PO SCH (10:24)
[2025-03-17] MEDS: FUROSEMIDE 20 MG PO SCH (10:25)
[2025-03-17] MEDS: Polyethylene Glycol 3350 Powder 17 GM Packet PO SCH (10:26)
[2025-03-17] MEDS: Hydrochlorothiazide 25 MG Tab PO SCH (10:26)
[2025-03-17] MEDS: Potassium Chloride 20 MEQ Tab.ER PO SCH (10:26)
[2025-03-17] MEDS: Pantoprazole 40 MG Tab.CR PO SCH (10:27)
[2025-03-17] MEDS: ALPRAZolam 0.5 MG Tab PO SCH (10:28)
[2025-03-17] MEDS: Fluticasone NASAL Spray 16 GM Bottle NAS SCH (10:28)
[2025-03-17] MEDS: Famotidine 20 MG Tab PO SCH (10:28)
[2025-03-17 13:00] VITALS: BP 126/49; PULSE 74
[2025-03-17] MEDS ORDERED: Pramipexole 0.5 MG Tab PO SCH (21:00)
[2025-03-17] MEDS ORDERED: FEXOFENADINE 180 MG PO SCH (21:00)
[2025-03-17] MEDS ORDERED: TRAZODONE 50 MG PO SCH (21:00)
[2025-03-17] MEDS ORDERED: Magnesium Oxide 400 MG Tab PO SCH (21:00)
[2025-03-17] MEDS ORDERED: DULOXETINE 20 MG PO SCH (21:00)
[2025-03-18] MEDS ORDERED: ARIPiprazole 10 MG Tab PO SCH (09:00)
== END 2025-03-17 13:31 | disposition home or self-care (01) ==
LOC: JP.ED 16:18 → JP.MS 19:14
PROVIDERS: ADMIT Internal Medicine; ATTEND Internal Medicine
DX: C88.00 Waldenstrom macroglobulinemia not having achieved remission (principal); R53.83 Other fatigue; K58.9 Irritable bowel syndrome, unspecified; F32.A Depression, unspecified; F17.210 Nicotine dependence, cigarettes, uncomplicated; Z88.8 Allergy status to other drugs, medicaments and biological substances; Z79.890 Hormone replacement therapy; Z91.040 Latex allergy status; Z79.899 Other long term (current) drug therapy
CPT/HCPCS: 36415; 36430; 70450; 80048; 80053; 82140; 83550; 83605; 83735; 85018; 85025; 85027; 85045; 86850; 86900; 86901; 86920; 86922; A9270; J7030; P9016; Q0164; 96360; 96361; 99285; 99285-25; G0378